=== PATIENT | male | born 1975 | race Caucasian/White ===

== ENCOUNTER → 2018-11-08 09:16 | Outpatient (POV) | payer OTHER, SELFPAY ==
[2018-11-08 09:31] VITALS: BP 149/98; PULSE 72; RESP 18; O2SAT 99
--- NOTE | 2018-11-08 12:37 | HMH.PMCON ---
Assessment and Plan (1) Postlaminectomy syndrome Current visit: Yes Status: Chronic Category: Medical Code(s): M96.1 - Postlaminectomy syndrome, not elsewhere classified (2) Failed back syndrome Current visit: Yes Status: Chronic Category: Medical Code(s): M96.1 - Postlaminectomy syndrome, not elsewhere classified - Assessment and plan all Dx Assessment and Plan for all problems:: Patient and I had a long discussion in regards to oral medications we discussed the probability of him having systemic side effects given his age and potential long-term need for them. Patient and I discussed also an intrathecal pain pump. He is interested in pursuing this. I do believe an intrathecal trial of medication would be beneficial for him. I will follow up with the patient after this. Dr. Barrow has reviewed this note and agrees with this plan of care. This note was dictated using voice recognition software and may contain errors or omissions HPI - Data of Consult Patient: new to practice Consult date: 11/08/18 Requesting Physician: Deepali Kebede APRN Primary Care Provider: Agnes Sifuentes APRN - Consult Narrative Reason for consult: Back pain History of present illness: Mr. Perez is a 42 year old male who presents today to discuss long-term management of his ongoing back pain. Patient has had [address] Villar. She states that the stabbing pain is gone however he still having a lot of low back pain. He denies any numbness and tingling in his extremities. Patient states any increased activity makes his pain worse while rest and Tylenol make it slightly better. He rates his pain a 6 out of 10 this is his baseline. Patient has tried injection therapy with minimal relief he is also tried physical therapy with minimal relief. He is tried and failed Soma, Flexeril, Lortab, Dilaudid, Motrin, Roxanol, naproxen, Endocet, Ultram. Patient has tried bracing with some minimal relief. Patient and I had a long discussion in regards to oral versus intrathecal medication. CC: Deepali Kebede APRN [facility] History I have reviewed the patient's past medical history: Yes Medical History: Reports:: Hypertension - *Social History Smoking Status: Current every day smoker Tobacco Type: smokeless tobacco # Packs/Day (cigarettes): 2 Alcohol Intake: never *Occupational Status:: other Housing: house *Travel in the last 8 weeks: None - Psychiatric History Expresses thoughts of harming self/others: None Suicide Plan Description: No Plan Family Hx:: Unable to obtain Review of Systems - Review of Systems ROS General: no recent weight change, no fever, no sleep disturbances Respiratory: no cough, no shortness of air, no recurring pulmonary infections Cardiovascular/Peripheral Vascular: No chest pain, No palpitations, no edema, no shortness of breath. Gastrointestinal: no incontinence, normal bowel movements reported Genitourinary: no incontinence Musculoskeletal: Back pain, hip pain Psychiatric: normal mood/ affect Neurological: [denies weakness in extremities], [denies balance issues] Meds Home Medications Medication Instructions Recorded Confirmed Type Ibuprofen [Ibuprofen 800mg 800 mg PO Q4-6H 11/08/18 11/08/18 History Tablet] Lisinopril [Lisinopril 10mg Tab] 10 mg PO DAILY 11/08/18 11/08/18 History Pantoprazole Sodium [Protonix 40mg 40 mg PO DAILY 11/08/18 11/08/18 History tablet] Objective Vital signs: Pulse Resp BP Pulse Ox 72 18 149/98 H 99 11/08/18 09:31 11/08/18 09:31 11/08/18 09:31 11/08/18 09:31 Narrative: Physical Exam General: Alert and oriented x3, no acute distress, pleasant and cooperative, [on room air] Lungs: Resps E/U, Symmetrical chest expansion, Eyes: PERRL Musculoskeletal: Flexion and extension of lumbar spine somewhat guarded secondary to pain, deep tendon reflexes normal, strength in upper and lower extremiti
--- NOTE | 2018-11-08 12:40 | P.CONS_ITS ---
Assessment and Plan (1) Postlaminectomy syndrome Current visit: Yes Status: Chronic Category: Medical Code(s): M96.1 - Postlaminectomy syndrome, not elsewhere classified (2) Failed back syndrome Current visit: Yes Status: Chronic Category: Medical Code(s): M96.1 - Postlaminectomy syndrome, not elsewhere classified - Assessment and plan all Dx Assessment and Plan for all problems:: Patient and I had a long discussion in regards to oral medications we discussed the probability of him having systemic side effects given his age and potential long-term need for them. Patient and I discussed also an intrathecal pain pump. He is interested in pursuing this. I do believe an intrathecal trial of medication would be beneficial for him. I will follow up with the patient after this. Dr. Barrow has reviewed this note and agrees with this plan of care. This note was dictated using voice recognition software and may contain errors or omissions HPI - Data of Consult Patient: new to practice Consult date: 11/08/18 Requesting Physician: Deepali Kebede APRN Primary Care Provider: Agnes Sifuentes APRN - Consult Narrative Reason for consult: Back pain History of present illness: Mr. Perez is a 42 year old male who presents today to discuss long-term management of his ongoing back pain. Patient has had [address] Villar. She states that the stabbing pain is gone however he still having a lot of low back pain. He denies any numbness and tingling in his extremities. Patient states any increased activity makes his pain worse while rest and Tylenol make it slightly better. He rates his pain a 6 out of 10 this is his baseline. Patient has tried injection therapy with minimal relief he is also tried physical therapy with minimal relief. He is tried and failed Soma, Flexeril, Lortab, Dilaudid, Motrin, Roxanol, naproxen, Endocet, Ultram. Patient has tried bracing with some minimal relief. Patient and I had a long discussion in regards to oral versus intrathecal medication. CC: Deepali Kebede APRN [facility] History I have reviewed the patient's past medical history: Yes Medical History: Reports:: Hypertension - *Social History Smoking Status: Current every day smoker Tobacco Type: smokeless tobacco # Packs/Day (cigarettes): 2 Alcohol Intake: never *Occupational Status:: other Housing: house *Travel in the last 8 weeks: None - Psychiatric History Expresses thoughts of harming self/others: None Suicide Plan Description: No Plan Family Hx:: Unable to obtain Review of Systems - Review of Systems ROS General: no recent weight change, no fever, no sleep disturbances Respiratory: no cough, no shortness of air, no recurring pulmonary infections Cardiovascular/Peripheral Vascular: No chest pain, No palpitations, no edema, no shortness of breath. Gastrointestinal: no incontinence, normal bowel movements reported Genitourinary: no incontinence Musculoskeletal: Back pain, hip pain Psychiatric: normal mood/ affect Neurological: [denies weakness in extremities], [denies balance issues] Meds Home Medications Medication Instructions Recorded Confirmed Type Ibuprofen [Ibuprofen 800mg 800 mg PO Q4-6H 11/08/18 11/08/18 History Tablet] Lisinopril [Lisinopril 10mg Tab] 10 mg PO DAILY 11/08/18 11/08/18 History Pantoprazole Sodium [Protonix 40mg 40 mg PO DAILY 11/08/18 11/08/18 History tablet] Obj
== END ==
PROVIDERS: PCP Nurse Practitioner; Visit Provider Clinical Nurse Specialist Family Health
DX: M96.1 Postlaminectomy syndrome, not elsewhere classified (principal)
CPT/HCPCS: 99202

== ENCOUNTER 2019-02-11 08:41 | Day surgery (SDC) | payer OTHER, SELFPAY ==
[2019-02-11] VITALS (9 sets, daily range): BP systolic 118–149; BP diastolic 77–89; PULSE 50–71; RESP 18–20; TEMP 37.2; O2SAT 94–99; BMI 27.1
--- NOTE | 2019-02-11 09:35 | P.PCN_ITS ---
- Procedure Date: 02/11/19 Time: 09:32 Anesthesiologist:: Grupo Barrow MD Complications:: None Pre-procedure Diagnosis:: Degenerative disc disease of lumbar spine with lumbar radiculopathy symptoms and postlaminectomy syndrome of lumbar spine Post-procedure Diagnosis:: Same Indications for Procedure:: This patient is a pleasant 42-year-old white male who we are treating for postlaminectomy syndrome of lumbar spine with lumbar radiculopathy symptoms. He has had 2 previous back surgeries by Dr. Asher. He is failed all conservative therapy including injections, physical therapy, previous surgery and oral narcotics. He normally does not take any oral narcotics. We will do a intrathecal pump trial today to see if this will help alleviate his symptoms. Procedure Details:: Pain pump trial Informed consent was obtained and the risk and benefits of the procedure was explained to the patient. The patient was taken to the procedure room and placed prone on the procedure table. Patient was prepped and draped in sterile fashion. C-arm fluoroscopy was used to view the lumbar spine. The skin and subcutaneous tissues were anesthetized using lidocaine. I placed a 18-gauge spinal needle into the L4-5 interspace and advanced until clear CSF was obtained. After this intrathecal catheter was inserted and advanced very easily to the L1 vertebral body. We were able to freely withdraw clear CSF through the catheter. We bolused 25 mcg of intrathecal fentanyl single shot through this catheter. This was followed by saline and CSF. The needle and catheter were then withdrawn and a Band-Aid was placed. Patient tolerated the procedure well with no complications. We reevaluated the patient after 30 minutes to 1 hour. He was also reassessed by physical therapy. He had 90% relief in his pain symptoms. Pain score was a 1 out of 10. He is also much more functional able to walk further and stand longer. This was a successful intrathecal pump trial. He wants to proceed with permanent placement. We will plan on permanent placement with intrathecal ziconotide which is a nonnarcotic medication. 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 We will plan on permanent placement with intrathecal ziconotide 25 mcg/mL to be on periodic flow at 0.5 mcg boluses twice a day. Plan and Disposition:: Plan and disposition: We will have him follow-up with Dr. Rizo for permanent placement of his battery. We will seek approval for intrathecal ziconotide 25 mcg per mall to be on periodic flow at 0.5 mg boluses. This was a successful pump trial. Patient is failed all conservative therapy including surgery and is not on any oral narcotics.
== END 2019-02-11 10:53 | disposition home or self-care (01) ==
LOC: SC.PAINP 08:43
PROVIDERS: PCP Physician Assistant Medical; Visit Provider Anesthesiology
DX: M51.16 Intervertebral disc disorders with radiculopathy, lumbar region (principal); M96.1 Postlaminectomy syndrome, not elsewhere classified
CPT/HCPCS: 62323

== ENCOUNTER → 2019-03-11 14:34 | Outpatient (POV) | payer OTHER, SELFPAY ==
[2019-03-11 15:13] VITALS: BP 141/84; PULSE 89; RESP 18; O2SAT 99; BMI 27.8
--- NOTE | 2019-03-11 15:15 | HMH.PAINSOAP ---
[facility] Pain Management SOAP Note Subjective:: This patient is a pleasant 42-year-old white male who we are treating for postlaminectomy syndrome of lumbar spine with lumbar radiculopathy symptoms. He had a successful neuropsychological evaluation and a successful intrathecal pump trial. 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 We are seeking approval from his [employer]. for intrathecal ziconotide. I believe he would be a good candidate for intrathecal ziconotide. We will plan on intrathecal pain pump placement with ziconotide when approved. Objective:: Alert and oriented x3 no acute distress. Patient does have a normal gait. Motor strength of the lower extremities is 5/5. There is no gross sensory deficit. Assessment:: Postlaminectomy syndrome of lumbar spine with lumbar radiculopathy symptoms and degenerative disc disease of lumbar spine Plan:: This patient is failed all conservative therapy including physical therapy, injections, oral medications and previous surgery. He had a successful neuropsychological evaluation and a successful intrathecal pump trial with 80 to 90% relief of his pain symptoms. He was also much more functional. 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 We are awaiting approval for his intrathecal ziconotide. We will start him at 0.5 mcg twice a day boluses. Patient did asked to be put off work and also asked for pain medication. I told him we cannot put him off work and we can not give him any opioid pain medication. I have suggested ibuprofen and Tylenol.
--- NOTE | 2019-03-11 15:18 | P.CONS_ITS ---
[facility] Pain Management SOAP Note Subjective:: This patient is a pleasant 42-year-old white male who we are treating for postlaminectomy syndrome of lumbar spine with lumbar radiculopathy symptoms. He had a successful neuropsychological evaluation and a successful intrathecal pump trial. 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 We are seeking approval from his [employer]. for intrathecal ziconotide. I believe he would be a good candidate for intrathecal ziconotide. We will plan on intrathecal pain pump placement with ziconotide when approved. Objective:: Alert and oriented x3 no acute distress. Patient does have a normal gait. Motor strength of the lower extremities is 5/5. There is no gross sensory deficit. Assessment:: Postlaminectomy syndrome of lumbar spine with lumbar radiculopathy symptoms and degenerative disc disease of lumbar spine Plan:: This patient is failed all conservative therapy including physical therapy, injections, oral medications and previous surgery. He had a successful neuropsychological evaluation and a successful intrathecal pump trial with 80 to 90% relief of his pain symptoms. He was also much more functional. 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 We are awaiting approval for his intrathecal ziconotide. We will start him at 0.5 mcg twice a day boluses. Patient did asked to be put off work and also asked for pain medication. I told him we cannot put him off work and we can not give him any opioid pain medication. I have suggested ibuprofen and Tylenol.
== END ==
PROVIDERS: PCP Physician Assistant Medical; Visit Provider Anesthesiology
DX: M96.1 Postlaminectomy syndrome, not elsewhere classified (principal); M51.16 Intervertebral disc disorders with radiculopathy, lumbar region
CPT/HCPCS: 99212

== ENCOUNTER → 2019-04-04 10:25 | Outpatient (CLI) | payer OTHER, SELFPAY ==
[2019-04-04 11:14] LABS: Basophils # 0.1 K/mm3 (0-0.2); Basophils % 0.9 % (0.1-2.0); Eosinophils # 0.1 K/mm3 (0.0-0.4); Hematocrit 51.6 % (42.0-52.0); Hemoglobin 15.5 g/dL (14.1-18.0); Lymphocytes # 1.9 K/mm3 (0.7-4.5); Lymphocytes % 34.1 % (10-50); Mean Corpuscular HGB Conc 30.1 g/dL (31.8-35.4); Mean Corpuscular Hemoglobin 28.1 pg (27.0-31.2); Mean Corpuscular Volume 93.6 fl (80-94); Mean Platelet Volume 9.2 fl (7.4-10.4); Monocytes # 0.3 K/mm3 (0.1-1.0); Monocytes % 5.8 % (1.7-9.3); Neutrophils # 3.2 K/mm3 (1.8-7.8); Neutrophils % 57.1 % (37.0-80.0); Platelet Count 173 K/mm3 (142-424); Red Blood Count 5.51 M/mm3 (4.60-6.20); Red Cell Distribution Width 12.6 % (11.5-17.5); White Blood Count 5.7 K/mm3 (4.8-10.8)
[2019-04-04 12:34] LABS: Anion Gap 9.1 mEq/L (5-15); Blood Urea Nitrogen 13 mg/dL (7-18); Calcium 10.9 mg/dL (8.5-10.1); Carbon Dioxide 30 mmol/L (21.0-32.0); Chloride 106 mmol/L (98-107); Creatinine,Serum 1.11 mg/dL (0.70-1.30); Estimated Glomerular Filt Rate 73 ml/min (>60); GFR (African American) 88 ML/MIN (>60); Glucose 96 mg/dL (74-106); Potassium 5.1 mmoL/L (3.5-5.1); Sodium 140 mmol/L (136-145)
[2019-04-04 14:49] LABS: Amphetamine/Metha Screen,Urine Negative ng/mL (<1000); Barbiturates Screen,Urine Negative ng/mL (<200); Benzodiazepines Screen,Urine Negative ng/mL (<200); Cannabinoid Screen,Urine Negative ng/mL (<50); Cocaine Screen,Urine Negative ng/mL (<300); Methadone Screen,Urine Negative ng/mL (<300); Opiate Screen,Urine Negative ng/mL (<300); Phencyclidine Screen,Urine Negative ng/mL (<25)
== END ==
PROVIDERS: Visit Provider Clinical Nurse Specialist Family Health
DX: Z79.899 Other long term (current) drug therapy (principal)
CPT/HCPCS: 36415; 80048; 80305; 85025

== ENCOUNTER → 2019-04-12 09:34 | Outpatient (POV) | payer OTHER, SELFPAY ==
[2019-04-12 09:50] VITALS: BP 147/96; PULSE 70; RESP 18; O2SAT 98; BMI 28.5
--- NOTE | 2019-04-12 09:51 | HMH.PAINSOAP ---
[facility] Pain Management SOAP Note Subjective:: Patient is a pleasant 42-year-old white male who presents today for follow-up after intrathecal pain pump placement. Patient is doing well today. He is being treated for postlaminectomy syndrome of lumbar spine with lumbar radiculopathy symptoms. He has had 2 previous back surgeries by Dr. Jian staples with continued back pain. He is failed all conservative therapies including injections physical therapy, previous surgeries and oral narcotics. He is no longer taking oral narcotics. Given his job he was unable to take any narcotics. As a result, we did start the patient with Prialt medication and his intrathecal pain pump. The patient says his pain is a 3 out of 10 today. He denies any side effects to his medication. [facility] #[id number] has been reviewed and is appropriate. Review of Systems General: No recent weight changes, no fever, no sleep disturbances Respiratory: No cough, no shortness of air, no recurring pulmonary infections Cardiovascular/peripheral vascular: No chest pain, no palpitations, no edema, no shortness of breath Gastrointestinal: No new onset incontinence, normal bowel movements reported Genitourinary: No new onset incontinence Musculoskeletal: Back pain Psychiatric: Normal mood/affect Neurological: [Denies weakness in extremities], [denies balance issues] Objective:: Physical exam General: Alert and oriented x3, no acute distress, pleasant and cooperative, [on room air] Lungs: Respirations even and unlabored, symmetrical chest expansion Eyes: PERRL Musculoskeletal: Flexion and extension of lumbar spine somewhat guarded secondary to pain, deep tendon reflexes normal, strength in upper and lower extremities [5/5], [abnormal gait noted] Neurological: Speech clear, valve steamer equal, no gross sensory deficit Assessment:: Degenerative disc disease lumbar spine with lumbar radiculopathy symptoms and postlaminectomy syndrome lumbar spine Plan:: Overall, the patient is doing well today. He denies any side effects to his medication. His wound VAC was removed today. Incision is well approximated with no infection noted. Sutures are intact. We will see the patient back in 2 weeks to remove his sutures. Patient is doing well with his dosage of Prialt. We will reassess at his next visit, and contact the office if he has any concerns prior to his next appointment. Dr. Barrow has reviewed this note and agrees with this plan of care. This note was dictated using voice recognition software and make contain errors or omissions.
--- NOTE | 2019-04-12 10:01 | P.CONS_ITS ---
[facility] Pain Management SOAP Note Subjective:: Patient is a pleasant 42-year-old white male who presents today for follow-up after intrathecal pain pump placement. Patient is doing well today. He is being treated for postlaminectomy syndrome of lumbar spine with lumbar radiculopathy symptoms. He has had 2 previous back surgeries by Dr. Jian staples with continued back pain. He is failed all conservative therapies including injections physical therapy, previous surgeries and oral narcotics. He is no longer taking oral narcotics. Given his job he was unable to take any narcotics. As a result, we did start the patient with Prialt medication and his intrathecal pain pump. The patient says his pain is a 3 out of 10 today. He denies any side effects to his medication. [facility] #[id number] has been reviewed and is appropriate. Review of Systems General: No recent weight changes, no fever, no sleep disturbances Respiratory: No cough, no shortness of air, no recurring pulmonary infections Cardiovascular/peripheral vascular: No chest pain, no palpitations, no edema, no shortness of breath Gastrointestinal: No new onset incontinence, normal bowel movements reported Genitourinary: No new onset incontinence Musculoskeletal: Back pain Psychiatric: Normal mood/affect Neurological: [Denies weakness in extremities], [denies balance issues] Objective:: Physical exam General: Alert and oriented x3, no acute distress, pleasant and cooperative, [on room air] Lungs: Respirations even and unlabored, symmetrical chest expansion Eyes: PERRL Musculoskeletal: Flexion and extension of lumbar spine somewhat guarded secondary to pain, deep tendon reflexes normal, strength in upper and lower extremities [5/5], [abnormal gait noted] Neurological: Speech clear, wood furniture assembler equal, no gross sensory deficit Assessment:: Degenerative disc disease lumbar spine with lumbar radiculopathy symptoms and postlaminectomy syndrome lumbar spine Plan:: Overall, the patient is doing well today. He denies any side effects to his medication. His wound VAC was removed today. Incision is well approximated with no infection noted. Sutures are intact. We will see the patient back in 2 weeks to remove his sutures. Patient is doing well with his dosage of Prialt. We will reassess at his next visit, and contact the office if he has any concerns prior to his next appointment. Dr. Barrow has reviewed this note and agrees with this plan of care. This note was dictated using voice recognition software and make contain errors or omissions.
== END ==
PROVIDERS: Visit Provider Clinical Nurse Specialist Family Health
DX: M51.16 Intervertebral disc disorders with radiculopathy, lumbar region (principal); M96.1 Postlaminectomy syndrome, not elsewhere classified
CPT/HCPCS: 99212

== ENCOUNTER → 2019-04-25 13:19 | Outpatient (POV) | payer OTHER, SELFPAY ==
[2019-04-25 14:09] VITALS: BP 128/82; PULSE 78; RESP 18; O2SAT 98; BMI 28.5
--- NOTE | 2019-05-02 16:00 | P.PCN_ITS ---
- Procedure Date: 04/25/19 Time: 13:45 Anesthesiologist:: Deepali Kebede APRN Complications:: None Pre-procedure Diagnosis:: Degenerative disc disease lumbar spine with lumbar radiculopathy Post-procedure Diagnosis:: Same Indications for Procedure:: Patient is a pleasant 43-year-old white male who presents today for intrathecal pain pump adjustment. Patient is doing extremely well the stitches have been removed over the intrathecal pain pump everything is healed no sign symptoms of infection. He is currently on a Prialt infusion of 0.5 mcg every 12 hours. He rates his pain a 3 out of 10 he denies side effects he would like a slight increase today. Physical Exam General: Alert and oriented x3, no acute distress, pleasant and cooperative, [on room air] Lungs: Resps E/U, Symmetrical chest expansion, Eyes: PERRL Musculoskeletal: Flexion and extension of lumbar spine somewhat guarded secondary to pain, deep tendon reflexes normal, strength in upper and lower extremities [5/5], slightly antalgic gait noted Neurological: speech clear, medical records receptionist equal, no gross sensory deficits Procedure Details:: Informed consent was obtained and the risk and benefits of the procedure were explained to the patient. The patient was taken to the procedure room where noninvasive monitoring was placed including noninvasive blood pressure cuff and pulse oximeter. Patient's pump was interrogated and reprogrammed. The infusion rate was patient was changed to 0.5 mcg every 8 hours for total daily dose of 1.5 mcg Prialt. The patient tolerated the procedure well. Plan and Disposition:: I will see the patient back in a month reassess his symptoms at that time he is been instructed to call the office if he has any issues prior to his next appointment. Dr. Barrow has reviewed this note and agrees with this plan of care. This note was dictated using voice recognition software and may contain errors or omissions
== END ==
PROVIDERS: Visit Provider Clinical Nurse Specialist Family Health
DX: M51.16 Intervertebral disc disorders with radiculopathy, lumbar region (principal)
CPT/HCPCS: 62368

== ENCOUNTER → 2019-05-09 14:02 | Outpatient (POV) | payer OTHER, SELFPAY ==
[2019-05-09 14:39] VITALS: BP 145/78; PULSE 72; RESP 18; O2SAT 98; BMI 28.5
--- NOTE | 2019-05-09 15:59 | HMH.PMPROC ---
- Procedure Date: 05/09/19 Time: 15:59 Anesthesiologist:: Deepali Kebede APRN Complications:: None Pre-procedure Diagnosis:: Degenerative disc disease lumbar spine with lumbar radiculopathy Post-procedure Diagnosis:: Same Indications for Procedure:: Patient is a pleasant 43-year-old white male who presents today for intrathecal pain pump adjustment. He rates his pain a 5 out of 10. He is doing well however his pain has increased with his increased activity. He did have some concerns in regards to the medication w working however he states he realizes now that it is beneficial for him. We will increase his dose today. He is currently on Prialt he is on 0.5 mcg every 8 hours. We will increase it today by 1 bolus. Physical Exam General: Alert and oriented x3, no acute distress, pleasant and cooperative, [on room air] Lungs: Resps E/U, Symmetrical chest expansion, Eyes: PERRL Musculoskeletal: Flexion and extension of lumbar spine somewhat guarded secondary to pain, deep tendon reflexes normal, strength in upper and lower extremities [5/5], slightly antalgic gait noted Neurological: speech clear, digital librarian equal, no gross sensory deficits Procedure Details:: Informed consent was obtained and the risk and benefits of the procedure were explained to the patient. The patient was taken to the procedure room where noninvasive monitoring was placed including noninvasive blood pressure cuff and pulse oximeter. Patient's pump was interrogated and reprogrammed. The infusion rate was 0.5 mcg every 6 hours for total daily dose of 2 mcg of Prialt. The patient tolerated the procedure well. Plan and Disposition:: I will see the patient back in 2 weeks reassess his symptoms at that time he is been instructed to call the office if he has any issues prior to his next appointment. Dr. Barrow has reviewed this note and agrees with this plan of care. This note was dictated using voice recognition software and may contain errors or omissions
== END ==
PROVIDERS: PCP Clinical Nurse Specialist Family Health; Visit Provider Clinical Nurse Specialist Family Health
DX: M51.16 Intervertebral disc disorders with radiculopathy, lumbar region (principal)
CPT/HCPCS: 62368

== ENCOUNTER → 2019-05-24 10:41 | Outpatient (POV) | payer OTHER, SELFPAY ==
[2019-05-24 11:59] VITALS: BP 151/95; PULSE 61; RESP 18; O2SAT 98; BMI 28.5
--- NOTE | 2019-05-24 12:47 | HMH.PMPROC ---
- Procedure Date: 05/24/19 Time: 12:47 Anesthesiologist:: Deepali Kebede APRN Complications:: None Pre-procedure Diagnosis:: Degenerative disc disease lumbar spine with lumbar radiculopathy Post-procedure Diagnosis:: Same Indications for Procedure:: This is a pleasant 43-year-old white male who presents today for intrathecal pain pump adjustment. He rates his pain a 3 out of 10. Patient I discussed when he can go back to work. I would like to wait until his first refill. We will increase his medication today he is going to start working out and seeing how his toleration of it goes. 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 He denies any side effects from his prialt. He is currently on Prialt 0.5 mcg every 6 hours. [facility] #[id number] reviewed and appropriate Physical Exam General: Alert and oriented x3, no acute distress, pleasant and cooperative, [on room air] Lungs: Resps E/U, Symmetrical chest expansion, Eyes: PERRL Musculoskeletal: Flexion and extension of lumbar spine somewhat guarded secondary to pain, deep tendon reflexes normal, strength in upper and lower extremities [5/5], normal gait noted Neurological: speech clear, microsoft windows engineer equal, no gross sensory deficits Procedure Details:: Informed consent was obtained and the risk and benefits of the procedure were explained to the patient. The patient was taken to the procedure room where noninvasive monitoring was placed including noninvasive blood pressure cuff and pulse oximeter. Patient's pump was interrogated and reprogrammed. The infusion rate was changed to periodic flow of 0.5 mcg every 4 hours for total daily dose of 3 mcg. The patient tolerated the procedure well. Plan and Disposition:: If possible I would like to keep him off work until his first refill I told him to start participating in more activity to see if he tolerates it well I will see him back at his next intrathecal pain pump refill and reprogram he is been instructed to call the office if he has any issues prior to his next appointment. Dr. Barrow has reviewed this note and agrees with this plan of care. This note was dictated using voice recognition software and may contain errors or omissions
--- NOTE | 2019-05-24 12:50 | P.PCN_ITS ---
- Procedure Date: 05/24/19 Time: 12:47 Anesthesiologist:: Deepali Kebede APRN Complications:: None Pre-procedure Diagnosis:: Degenerative disc disease lumbar spine with lumbar radiculopathy Post-procedure Diagnosis:: Same Indications for Procedure:: This is a pleasant 43-year-old white male who presents today for intrathecal pain pump adjustment. He rates his pain a 3 out of 10. Patient I discussed when he can go back to work. I would like to wait until his first refill. We will increase his medication today he is going to start working out and seeing how his toleration of it goes. 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 He denies any side effects from his prialt. He is currently on Prialt 0.5 mcg every 6 hours. [facility] #[id number] reviewed and appropriate Physical Exam General: Alert and oriented x3, no acute distress, pleasant and cooperative, [on room air] Lungs: Resps E/U, Symmetrical chest expansion, Eyes: PERRL Musculoskeletal: Flexion and extension of lumbar spine somewhat guarded secondary to pain, deep tendon reflexes normal, strength in upper and lower extremities [5/5], normal gait noted Neurological: speech clear, ultimate hoops trainer equal, no gross sensory deficits Procedure Details:: Informed consent was obtained and the risk and benefits of the procedure were explained to the patient. The patient was taken to the procedure room where noninvasive monitoring was placed including noninvasive blood pressure cuff and pulse oximeter. Patient's pump was interrogated and reprogrammed. The infusion rate was changed to periodic flow of 0.5 mcg every 4 hours for total daily dose of 3 mcg. The patient tolerated the procedure well. Plan and Disposition:: If possible I would like to keep him off work until his first refill I told him to start participating in more activity to see if he tolerates it well I will see him back at his next intrathecal pain pump refill and reprogram he is been instructed to call the office if he has any issues prior to his next appointment. Dr. Barrow has reviewed this note and agrees with this plan of care. This note was dictated using voice recognition software and may contain errors or omissions
== END ==
PROVIDERS: PCP Physician Assistant Medical; Visit Provider Clinical Nurse Specialist Family Health
DX: M51.16 Intervertebral disc disorders with radiculopathy, lumbar region (principal)
CPT/HCPCS: 62368

== ENCOUNTER → 2019-08-01 14:20 | Outpatient (POV) | payer OTHER, SELFPAY ==
[2019-08-01 14:56] VITALS: BP 154/95; PULSE 88; RESP 18; O2SAT 98; BMI 29.1
--- NOTE | 2019-08-02 08:34 | P.PCN_ITS ---
- Procedure Date: 08/01/19 Time: 14:40 Anesthesiologist:: Deepali Kebede APRN Complications:: None Pre-procedure Diagnosis:: Degenerative disc disease lumbar spine with lumbar radiculopathy Post-procedure Diagnosis:: Same Indications for Procedure:: Patient is a pleasant 43-year-old white male who presents today for intrathecal pain pump adjustment. Patient is on Prialt he has been having some side effects including brain fog, blurry vision, difficulty with vocabulary at times. Patient also having memory issues. We will decrease his intrathecal infusion of Prialt to see if this is beneficial. Patient is currently on 4 mcg a day we will decrease him to 3.6 and change it to 0.3 mcg over 10 minutes every 2 hours. Patient is having some pain rating it a 7 out of 10 today. However it does flare and decrease.Physical Exam General: Alert and oriented x3, no acute distress, pleasant and cooperative, [on room air] Lungs: Resps E/U, Symmetrical chest expansion, Eyes: PERRL Musculoskeletal: Flexion and extension of lumbar spine somewhat guarded secondary to pain, deep tendon reflexes normal, strength in upper and lower extremities [5/5], [abnormal gait noted] Neurological: speech clear, evp global product leadership equal, no gross sensory deficits Procedure Details:: Informed consent was obtained and the risk and benefits of the procedure were explained to the patient. The patient was taken to the procedure room where noninvasive monitoring was placed including noninvasive blood pressure cuff and pulse oximeter. Patient's pump was interrogated and reprogrammed. The infusion rate was turned to 0.3 mcg over 10 minutes every 2 hours. The patient tolerated the procedure well. Plan and Disposition:: Will follow-up with the patient 1 week reassess his symptoms at that time he has been instructed to call the office if he has any issues prior to his next appointment. Dr. Barrow has reviewed this note and agrees with this plan of care. This note was dictated using voice recognition software and may contain errors or omissions
== END ==
PROVIDERS: PCP Physician Assistant Medical; Visit Provider Clinical Nurse Specialist Family Health
DX: M51.16 Intervertebral disc disorders with radiculopathy, lumbar region (principal)
CPT/HCPCS: 62368

== ENCOUNTER → 2019-08-09 10:11 | Outpatient (POV) | payer OTHER, SELFPAY ==
[2019-08-09 10:45] VITALS: BP 131/85; PULSE 66; RESP 16; O2SAT 97; BMI 29.1
--- NOTE | 2019-08-09 11:52 | P.PCN_ITS ---
- Procedure Date: 08/09/19 Time: 11:00 Anesthesiologist:: Deepali Kebede APRN Complications:: None Pre-procedure Diagnosis:: Degenerative disc disease lumbar spine with lumbar radiculopathy Post-procedure Diagnosis:: Same Indications for Procedure:: Patient is a very pleasant 43-year-old white male who presents today for intrathecal pain pump adjustment. He is on Prialt and has been having some side effects including memory issues foggy headedness and difficulty with vocabulary at times. At his last visit he was decreased and he did significantly better. Patient is presenting today with his who also states he did much better. He rates his pain a 4 out of 10 today however he still concerned because he is exhibiting the same side effects. Patient and I had a long discussion in regards to how we should move forward. We will decrease his overall rate today switch him to constant flow and start a PTC. Physical Exam General: Alert and oriented x3, no acute distress, pleasant and cooperative, [on room air] Lungs: Resps E/U, Symmetrical chest expansion, Eyes: PERRL Musculoskeletal: Flexion and extension of lumbar spine somewhat guarded secondary to pain, deep tendon reflexes normal, strength in upper and lower extremities [5/5], antalgic gait noted Neurological: speech clear, wage and salary specialist equal, no gross sensory deficits Procedure Details:: Informed consent was obtained and the risk and benefits of the procedure were explained to the patient. The patient was taken to the procedure room where noninvasive monitoring was placed including noninvasive blood pressure cuff and pulse oximeter. Patient's pump was interrogated and reprogrammed. The infusion rate was decreased to 1.8 mcg/day and a PTC was set up at 0.18 mcg over 10 minutes every 4 hours as needed. The patient tolerated the procedure well. Plan and Disposition:: I will follow-up with the patient in 1 week reassess his symptoms at that time he is been instructed to call the office if he has any issues prior to his next appointment.. Dr. Barrow has reviewed this note and agrees with this plan of care. This note was dictated using voice recognition software and may contain errors or omissions
== END ==
PROVIDERS: PCP Physician Assistant Medical; Visit Provider Clinical Nurse Specialist Family Health
DX: M51.16 Intervertebral disc disorders with radiculopathy, lumbar region (principal)
CPT/HCPCS: 62368

== ENCOUNTER → 2019-08-16 10:53 | Outpatient (POV) | payer OTHER, SELFPAY ==
[2019-08-16 11:34] VITALS: BP 129/85; PULSE 65; RESP 18; O2SAT 99; BMI 33.9
--- NOTE | 2019-08-16 16:01 | P.PCN_ITS ---
- Procedure Date: 08/16/19 Time: 15:57 Anesthesiologist:: Deepali Kebede APRN Complications:: None Pre-procedure Diagnosis:: Degenerative disc disease lumbar spine with lumbar radiculopathy Post-procedure Diagnosis:: Same Indications for Procedure:: Patient is a pleasant 43-year-old white male who presents today for follow-up after decrease in his intrathecal Prialt medication. He rates his pain a 3 out of 10 today. Patient states that his fogginess has improved however on further discussion in regards to his history patient states that he has a history of brain fog and difficulty finding words. Patient also states that he is having trouble with his sexual relations stating that it painful. I discussed with him that I feel like he should go and be seen by a primary care provider for blood testing. I discussed with him in regards to his sexual issues that we would continue to monitor this however I do not believe it is a issue in regards to the Prialt. Physical Exam General: Alert and oriented x3, no acute distress, pleasant and cooperative, [on room air] Lungs: Resps E/U, Symmetrical chest expansion, Eyes: PERRL Musculoskeletal: Flexion and extension of lumbar spine somewhat guarded secondary to pain, deep tendon reflexes normal, strength in upper and lower extremities [5/5], [abnormal gait noted] Neurological: speech clear, brazer assembler equal, no gross sensory deficits Procedure Details:: Informed consent was obtained and the risk and benefits of the procedure were explained to the patient. The patient was taken to the procedure room where noninvasive monitoring was placed including noninvasive blood pressure cuff and pulse oximeter. Patient's pump was interrogated and reprogrammed. The infusion rate was changed back to periodic flow of 0.18 mcg every hour and a half for total daily dose of 2.88 mcg/day. The patient tolerated the procedure well. Plan and Disposition:: I did not change the dosing of his medication I only change the way that was being delivered. Patient is going to be seen by his primary care physician for discussion in regards to potential electrolyte imbalances and having some blood work run. I will follow-up with him after a week reassess him at that time. Dr. Barrow has reviewed this note and agrees with this plan of care. This note was dictated using voice recognition software and may contain errors or omissions
== END ==
PROVIDERS: PCP Physician Assistant Medical; Visit Provider Clinical Nurse Specialist Family Health
DX: M51.16 Intervertebral disc disorders with radiculopathy, lumbar region (principal)
CPT/HCPCS: 62368

== ENCOUNTER → 2019-08-30 10:37 | Outpatient (POV) | payer OTHER, SELFPAY ==
[2019-08-30 11:09] VITALS: BP 165/89; PULSE 74; RESP 18; O2SAT 99; BMI 31.1
--- NOTE | 2019-08-30 11:42 | P.PCN_ITS ---
- Procedure Date: 08/30/19 Time: 11:40 Anesthesiologist:: Deepali Kebede APRN Complications:: None Pre-procedure Diagnosis:: Degenerative disc disease lumbar spine with lumbar radiculopathy Post-procedure Diagnosis:: Same Indications for Procedure:: Patient is a pleasant 43-year-old white male who presents today for intrathecal pain pump reprogram. Patient has Prialt. She he rates his pain a 4 out of 10. His pain is increased we have been decreasing them due to side effects his side effects has since subsided. Patient will begin to slowly reintroduce Prialt and will report any side effects. Patient also is being treated for high levels of calcium. Patient is also having some sexual issues he does have a past history of family prostate cancer and also history of prostate infections. I encouraged the patient to go see his urologist. ROS General: no recent weight change, no fever, no sleep disturbances Respiratory: no cough, no shortness of air, no recurring pulmonary infections Cardiovascular/Peripheral Vascular: No chest pain, No palpitations, no edema, no shortness of breath. Gastrointestinal: no new onset incontinence, normal bowel movements reported Genitourinary: no new onset incontinence Musculoskeletal: Back pain Psychiatric: normal mood/ affect Neurological: [denies new onset weakness in extremities], [denies new onset balance issues] Procedure Details:: Informed consent was obtained and the risk and benefits of the procedure were explained to the patient. The patient was taken to the procedure room where no ninvasive monitoring was placed including noninvasive blood pressure cuff and pulse oximeter. Patient's pump was interrogated and reprogrammed. The infusion rate was increased to 3 mcg a day and his PTC was set up at 0.15 mcg per activation with up to 6 activations a day every 4 hours as needed. The patient tolerated the procedure well. Plan and Disposition:: I will follow-up with the patient at his next intrathecal pain pump refill and reprogram. He is been instructed to call the office if he has any issues prior to his next appointment. Dr. Barrow has reviewed this note and agrees with this plan of care. This note was dictated using voice recognition software and may contain errors or omissions
== END ==
PROVIDERS: PCP Physician Assistant Medical; Visit Provider Clinical Nurse Specialist Family Health
DX: M51.16 Intervertebral disc disorders with radiculopathy, lumbar region (principal)
CPT/HCPCS: 99212

== ENCOUNTER → 2019-11-15 11:02 | Outpatient (POV) | payer OTHER, SELFPAY ==
[2019-11-15 11:42] VITALS: BP 154/99; PULSE 80; RESP 18; O2SAT 99; BMI 27.8
--- NOTE | 2019-11-15 11:49 | HMH.PMPROC ---
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 Patient has a Prialt intrathecal pain pump going at 0.29 mcg every 2 hours for total daily dose of 3.48 mcg/day. Patient was having some side effects however these have resolved. Patient is also recently found out that the reason his calcium has been elevated is he has a parathyroid tumor. Patient's go to be seen by for this. He rates the pain a 6 out of 10. Physical Exam General: Alert and oriented x3, no acute distress, pleasant and cooperative, [on room air] Lungs: Resps E/U, Symmetrical chest expansion, Eyes: PERRL Musculoskeletal: Flexion and extension of lumbar spine somewhat guarded secondary to pain, deep tendon reflexes normal, strength in upper and lower extremities [5/5], normal gait noted Neurological: speech clear, combination building inspector equal, no gross sensory deficits Procedure Details:: Informed consent was obtained and the risk and benefits of the procedure were explained to the patient. The patient was taken to the procedure room where noninvasive monitoring was placed including noninvasive blood pressure cuff and pulse oximeter. Patient's pump was interrogated and reprogrammed. The infusion rate was increased to 0.34 mcg every 2 hours for total daily dose of 4 mcg/day. The patient tolerated the procedure well. Plan and Disposition:: I will follow-up with the patient at his next intrathecal pain pump refill and reprogram. Patient has been instructed to call the office if he has any issues prior to his next appointment. Dr. Barrow has reviewed this note and agrees with this plan of care. This note was dictated using voice recognition software and may contain errors or omissions
== END ==
PROVIDERS: PCP Physician Assistant Medical; Visit Provider Clinical Nurse Specialist Family Health
DX: M51.16 Intervertebral disc disorders with radiculopathy, lumbar region (principal)
CPT/HCPCS: 62368

== ENCOUNTER → 2020-01-30 11:19 | Outpatient (POV) | payer OTHER, SELFPAY ==
[2020-01-30 11:22] VITALS: BP 143/75; PULSE 54; RESP 18; TEMP 36.8; O2SAT 98; BMI 29.7
--- NOTE | 2020-01-30 11:37 | P.CONS_ITS ---
[facility] Pain Management SOAP Note Subjective:: Patient is a pleasant 44-year-old white male who presents today for intrathecal pain pump medication discussion. Patient has been having continual side effects with his preop. He states that he has pain rating it a 5 out of 10 and that he is unable to tolerate increases due to side effects. Patient has talked with his Workmen's [employer]. along with multiple physicians in regards to him continuing work while switching to morphine and his intrathecal pump. We will move forward with this.. ROS General: no recent weight change, no fever, no sleep disturbances Respiratory: no cough, no shortness of air, no recurring pulmonary infections Cardiovascular/Peripheral Vascular: No chest pain, No palpitations, no edema, no shortness of breath. Gastrointestinal: no new onset incontinence, normal bowel movements reported Genitourinary: no new onset incontinence Musculoskeletal: Back pain, leg pain Psychiatric: normal mood/ affect Neurological: [denies new onset weakness in extremities], [denies new onset balance issues] Objective:: Physical Exam General: Alert and oriented x3, no acute distress, pleasant and cooperative, [on room air] Lungs: Resps E/U, Symmetrical chest expansion, Eyes: PERRL Musculoskeletal: Flexion and extension of lumbar spine somewhat guarded secondary to pain, deep tendon reflexes normal, strength in upper and lower extremities [5/5], antalgic gait noted Neurological: speech clear, tugboat engineer equal, no gross sensory deficits Assessment:: Degenerative disc disease lumbar spine with lumbar radiculopathy Plan:: We will change the patient over to morphine 5 mg/mL and start him up 0.25 mg/day Dr. Barrow has reviewed this note and agrees with this plan of care. This note was dictated using voice recognition software and may contain errors or omissions [facility] History I have reviewed the patient's past medical history: Yes Medical History: Reports:: Gastroesophageal Reflux Disease(GERD), Hypertension Denies:: Cancer, Diabetes Mellitus Type 1, Diabetes Mellitus Type 2, Internal Pacemaker, MRSA, Seizures *Have you ever received a pneumonia vaccine?: Yes *Have you received a flu vaccine this season?: Yes Other Medical History: Denies: Blood Transfusion Reaction Other Surgeries: Yes: Other (back x2, right leg). No: Pacemaker Amputation: No Fractures: No - *Social History Smoking Status: Current every day smoker Tobacco Type: smokeless tobacco # Packs/Day (cigarettes): 2 Alcohol Intake: never Substance Use Type: denies use *Occupational Status:: other Housing: house Household Members: spouse *Travel in the last 8 weeks: None Family Hx:: Unable to obtain
== END ==
PROVIDERS: PCP Physician Assistant Medical; Visit Provider Clinical Nurse Specialist Family Health
DX: M51.16 Intervertebral disc disorders with radiculopathy, lumbar region (principal)
CPT/HCPCS: 99212

== ENCOUNTER 2020-02-14 14:13 | Day surgery (SDC) | payer OTHER, SELFPAY ==
[2020-02-14 14:17] VITALS: BP 130/81; PULSE 61; RESP 18; TEMP 36.7; O2SAT 95; BMI 30.5
[2020-02-14 14:46] VITALS: BP 121/85; PULSE 80; RESP 18
[2020-02-14 14:47] VITALS: BP 132/85; PULSE 88; RESP 18; O2SAT 99
[2020-02-14 14:55] VITALS: BP 126/77; PULSE 61; RESP 18; O2SAT 95
--- NOTE | 2020-02-14 15:02 | HMH.PMPROC ---
- Procedure Date: 02/14/20 Time: 15:03 Anesthesiologist:: Deepali Kebede APRN Complications:: None Pre-procedure Diagnosis:: Degenerative disc disease lumbar spine with lumbar radiculopathy Post-procedure Diagnosis:: Same Indications for Procedure:: Patient is a pleasant 44-year-old white male who presents today for intrathecal pain pump refill and reprogram. Patient was on Prialt however he was having side effects in regards to it and is being switched to morphine today. We will start him at 0.25 mg a day of morphine. He rates his pain today a 5 out of 10. Physical Exam General: Alert and oriented x3, no acute distress, pleasant and cooperative, [on room air] Lungs: Resps E/U, Symmetrical chest expansion, Eyes: PERRL Musculoskeletal: Flexion and extension of lumbar spine somewhat guarded secondary to pain, deep tendon reflexes normal, strength in upper and lower extremities [5/5], slightly antalgic gait noted Neurological: speech clear, disc pad grinding machine feeder equal, no gross sensory deficits Procedure Details:: Informed consent was obtained and the risk and benefits of the procedure were explained to the patient. The patient was taken to the procedure room where noninvasive monitoring was placed including noninvasive blood pressure cuff and pulse oximeter. Patient's pump was interrogated. The area over the pump was cleansed with chlorhexidine as a cleansing solution. In sterile fashion the pump was accessed with a 22-gauge needle. Approximately 11 mL's were removed of the pump solution and discarded appropriately. The pump was then refilled with 20 mL's of morphine 5 mg/mL. The needle was withdrawn and a bandage was placed over the puncture site. The infusion rate was reprogrammed to 0.25 mg of morphine a day.. The patient tolerated the procedure well. Plan and Disposition:: We will follow-up with the patient 1 to 2 weeks in the office reassess his symptoms at that time and make any adjustments as necessary. His PTC was turned off. [facility] #[id number] reviewed and appropriate. Dr. Barrow has reviewed this note and agrees with this plan of care. This note was dictated using voice recognition software and may contain errors or omissions
== END 2020-02-14 14:55 | disposition home or self-care (01) ==
PROVIDERS: PCP Physician Assistant Medical; Visit Provider Clinical Nurse Specialist Family Health
DX: M51.16 Intervertebral disc disorders with radiculopathy, lumbar region (principal); I10 Essential (primary) hypertension; K21.9 Gastro-esophageal reflux disease without esophagitis; Z72.0 Tobacco use
CPT/HCPCS: 62370

== ENCOUNTER → 2020-02-21 09:44 | Outpatient (POV) | payer OTHER, SELFPAY ==
[2020-02-21 10:05] VITALS: BP 132/87; PULSE 85; RESP 18; TEMP 36.8; O2SAT 99; BMI 29.8
--- NOTE | 2020-02-21 11:24 | HMH.PMPROC ---
- Procedure Date: 02/21/20 Time: 11:24 Anesthesiologist:: Deepali Kebede APRN Complications:: None Pre-procedure Diagnosis:: Degenerative disc disease lumbar spine with lumbar radiculopathy Post-procedure Diagnosis:: Same Indications for Procedure:: Patient is a pleasant 44-year-old white male who we have changed over intrathecal ziconotide to morphine. He is at 0.25 mg/day. He does have slight urinary hesitancy. We will put him on Flomax 4 mg 1 p.o. daily for a month. He rates his pain a 4 out of 10. Patient states that he is having no other side effects to the medication. We will set his PTC up today and give him a slight increase in his medicine. Physical Exam General: Alert and oriented x3, no acute distress, pleasant and cooperative, [on room air] Lungs: Resps E/U, Symmetrical chest expansion, Eyes: PERRL Musculoskeletal: Flexion and extension of lumbar spine somewhat guarded secondary to pain, deep tendon reflexes normal, strength in upper and lower extremities [5/5], slightly antalgic gait noted Neurological: speech clear, software performance engineer equal, no gross sensory deficits Procedure Details:: Informed consent was obtained and the risk and benefits of the procedure were explained to the patient. The patient was taken to the procedure room where noninvasive monitoring was placed including noninvasive blood pressure cuff and pulse oximeter. Patient's pump was interrogated and reprogrammed. The infusion rate was increased to 0.3 mg of morphine and his PTC was started at 0.03 mg every 6 hours as needed. The patient tolerated the procedure well. Plan and Disposition:: I will see the patient back at his next intrathecal pain pump refill and reprogram he has been instructed to call the office if he has any issues prior to his next appointment. Dr. Barrow has reviewed this note and agrees with this plan of care. This note was dictated using voice recognition software and may contain errors or omissions
== END ==
PROVIDERS: PCP Physician Assistant Medical; Visit Provider Clinical Nurse Specialist Family Health
DX: M51.16 Intervertebral disc disorders with radiculopathy, lumbar region (principal)
CPT/HCPCS: 62368

== ENCOUNTER → 2020-04-09 09:23 | Outpatient (POV) | payer OTHER, SELFPAY ==
--- NOTE | 2020-04-09 11:12 | P.PCN_ITS ---
- Procedure Date: 04/09/20 Time: 11:12 Anesthesiologist:: Damaris Louis APRN Complications:: None Pre-procedure Diagnosis:: Degenerative disc disease lumbar spine with lumbar radiculopathy symptoms Post-procedure Diagnosis:: Same Indications for Procedure:: Patient is a 44-year-old white male who presents today for intrathecal pain pump adjustment. He is being treated for low back pain with lumbar radiculopathy symptoms. Patient was previously on psych on a tied and was having reported head fogginess. As result, he was changed to morphine. He did initially have some urinary hesitancy after the medication change. Patient says he is doing much better at this time with urinary side effects. He denies any issues at this time. He is no longer taking Flomax. He does rate his pain a 3 out of 10 with sitting and a 5 out of 10 with standing. He would like his medication increased today. He is currently on 0.3 mg/day. The patient's urine drug screens and Rufino's have been appropriate. Physical exam General: Alert and oriented x3, no acute distress, pleasant and cooperative, [on room air] Lungs: Respirations even and unlabored, symmetrical chest expansion Eyes: PERRL Musculoskeletal: Flexion and extension of lumbar spine somewhat guarded secondary to pain, deep tendon reflexes normal, strength in upper and lower extremities [5/5], [abnormal gait noted] Neurological: Speech clear, registration scheduling specialist equal, no gross sensory deficit Procedure Details:: Informed consent was obtained and the risk and benefits of the procedure were explained to the patient. Patient was taken to the procedure room where noninvasive monitoring was placed including noninvasive blood pressure cuff and pulse oximeter. Patient's pump was interrogated and was reprogrammed to morphine at 0.4 mg/day. The patient tolerated the procedure well with no complications. Plan and Disposition:: Patient I did discuss if he does have any side effects with urinary hesitancy or any other issues to call the clinic. We will otherwise follow-up with him in 2 weeks to reassess his symptoms. He has been instructed to contact the clinic if he has any concerns before his next appointment. The patient and I specifically discussed risk factors for COVID19. These risks include, but are not limited to age greater than 60, heart or lung disease, diabetes, immunosuppression, and travel. We also discussed NSAIDs may worsen COVID19 infection or symptoms. Patient should not use NSAIDs to treat COVID19 signs or symptoms. Patient was also informed that any type of corticosteroid of any form (oral or injection) will decrease the patient's immune system response and may increase the likelihood of COVID19 infection and symptoms[address]. Barrow has reviewed this note and agrees with this plan of care. This note was dictated using voice recognition software and make contain errors or omissions.
== END ==
PROVIDERS: PCP Physician Assistant Medical; Visit Provider Clinical Nurse Specialist Family Health
DX: M51.16 Intervertebral disc disorders with radiculopathy, lumbar region (principal); I10 Essential (primary) hypertension; K21.9 Gastro-esophageal reflux disease without esophagitis; Z87.39 Personal history of other diseases of the musculoskeletal system and connective tissue; Z72.0 Tobacco use
CPT/HCPCS: 62368

== ENCOUNTER → 2020-04-23 09:45 | Outpatient (POV) | payer OTHER, SELFPAY ==
--- NOTE | 2020-04-23 10:19 | HMH.PMPROC ---
- Procedure Date: 04/23/20 Time: 10:19 Anesthesiologist:: Deepali Kebede APRN Complications:: None Pre-procedure Diagnosis:: Degenerative disc disease lumbar spine with lumbar radiculopathy symptoms Post-procedure Diagnosis:: Same Indications for Procedure:: Patient is a pleasant 44-year-old white male who presents today for intrathecal pain pump adjustment. He is currently 0.4 mg a day of morphine. Overall doing well rating his pain today at 3 out of 10. He would like a slight increase. He denies side effects. Physical Exam General: Alert and oriented x3, no acute distress, pleasant and cooperative, [on room air] Lungs: Resps E/U, Symmetrical chest expansion, Eyes: PERRL Musculoskeletal: Flexion and extension of lumbar spine somewhat guarded secondary to pain, deep tendon reflexes normal, strength in upper and lower extremities [5/5], normal gait noted Neurological: speech clear, corporate sales representative equal, no gross sensory deficits Procedure Details:: Informed consent was obtained and the risk and benefits of the procedure were explained to the patient. The patient was taken to the procedure room where noninvasive monitoring was placed including noninvasive blood pressure cuff and pulse oximeter. Patient's pump was interrogated and reprogrammed. The infusion rate was increased to 0.5 mg a day of morphine. The patient tolerated the procedure well. Plan and Disposition:: I will follow-up with the patient at his next intrathecal pain pump refill and reprogram he has been instructed to call the office if he has any issues prior to his next appointment. Dr. Barrow has reviewed this note and agrees with this plan of care. This note was dictated using voice recognition software and may contain errors or omissions
[2020-04-23 10:20] VITALS: BP 132/88; PULSE 79; RESP 18; O2SAT 98; BMI 31.1
== END ==
PROVIDERS: PCP Physician Assistant Medical; Visit Provider Clinical Nurse Specialist Family Health
DX: M51.16 Intervertebral disc disorders with radiculopathy, lumbar region (principal); M96.1 Postlaminectomy syndrome, not elsewhere classified
CPT/HCPCS: 62368

== ENCOUNTER 2020-06-11 14:58 | Day surgery (SDC) | payer OTHER, SELFPAY ==
[2020-06-11 15:18] VITALS: BP 137/84; PULSE 76; RESP 19; TEMP 37.1; O2SAT 99; BMI 31.1
[2020-06-11 15:58] VITALS: BP 132/78; PULSE 74; RESP 18
[2020-06-11 16:00] VITALS: BP 132/74; PULSE 79; RESP 18; O2SAT 98
--- NOTE | 2020-06-11 16:01 | P.PCN_ITS ---
- Procedure Date: 06/11/20 Time: 16:02 Anesthesiologist:: Deepali Kebede APRN Complications:: None Pre-procedure Diagnosis:: Degenerative disc disease lumbar spine lumbar radiculopathy symptoms Post-procedure Diagnosis:: Same Indications for Procedure:: Patient is a pleasant 44-year-old white male who presents today for intrathecal pain pump refill and reprogram. He is currently on an intrathecal dose of morphine. He is doing quite well rating his pain a 3 out of 10. He would like a slight increase and be changed back to periodic flow. Patient denies side effects with medication. [facility] #[id number] reviewed and appropriate. Physical Exam General: Alert and oriented x3, no acute distress, pleasant and cooperative, [on room air] Lungs: Resps E/U, Symmetrical chest expansion, Eyes: PERRL Musculoskeletal: Flexion and extension of lumbar spine somewhat guarded secondary to pain, deep tendon reflexes normal, strength in upper and lower extremities [5/5], antalgic gait noted Neurological: speech clear, master sheet clerk equal, no gross sensory deficits Procedure Details:: Informed consent was obtained and the risk and benefits of the procedure were explained to the patient. The patient was taken to the procedure room where noninvasive monitoring was placed including noninvasive blood pressure cuff and pulse oximeter. Patient's pump was interrogated. The area over the pump was cleansed with chlorhexidine as a cleansing solution. In sterile fashion the pump was accessed with a 22-gauge needle. Approximately 9.5 mL's were removed of the pump solution and discarded appropriately. The pump was then refilled with 20 mL's of morphine 5 mg/mL. The needle was withdrawn and a bandage was placed over the puncture site. The infusion rate was reprogrammed to 0.062 mg every 2 hours for total daily dose of 0.75 mg/day. The patient tolerated the procedure well. Plan and Disposition:: I will follow-up with the patient at his next medical pain pump refill and reprogram he has been instructed to call the office if he has any issues prior to his next appointment. Dr. Barrow has reviewed this note and agrees with this plan of care. This note was dictated using voice recognition software and may contain errors or omissions
[2020-06-11 16:06] VITALS: BP 123/85; PULSE 73; RESP 18; O2SAT 99
== END 2020-06-11 16:07 | disposition home or self-care (01) ==
LOC: SC.PAINP 15:00
PROVIDERS: PCP Physician Assistant Medical; Visit Provider Clinical Nurse Specialist Family Health
DX: M51.16 Intervertebral disc disorders with radiculopathy, lumbar region (principal); I10 Essential (primary) hypertension; E07.9 Disorder of thyroid, unspecified; Z87.39 Personal history of other diseases of the musculoskeletal system and connective tissue; M96.1 Postlaminectomy syndrome, not elsewhere classified; Z79.899 Other long term (current) drug therapy
CPT/HCPCS: 62370

== ENCOUNTER → 2020-07-23 08:04 | Outpatient (POV) | payer OTHER, SELFPAY ==
--- NOTE | 2020-07-23 08:31 | P.PCN_ITS ---
- Procedure Date: 07/23/20 Time: 08:31 Anesthesiologist:: Deepali Kebede APRN Complications:: None Pre-procedure Diagnosis:: Degenerative disc disease lumbar spine lumbar radiculopathy symptoms Post-procedure Diagnosis:: Same Indications for Procedure:: Patient is pleasant 44-year-old white male who presents today for intrathecal pain pump adjustment. He is currently on intrathecal dose of morphine going at 0.075 mg every 2 hours for total daily dose of 0.75 mg of morphine a day. He denies side effects to his medication his pain is beginning to increase. He rates his pain a 4 out of 10. Patient's Rufino reviewed Rufino #[id number]. Physical Exam General: Alert and oriented x3, no acute distress, pleasant and cooperative, [on room air] Lungs: Resps E/U, Symmetrical chest expansion, Eyes: PERRL Musculoskeletal: Flexion and extension of lumbar spine somewhat guarded secondary to pain, deep tendon reflexes normal, strength in upper and lower extremities [5/5], slightly antalgic gait noted Neurological: speech clear, ship design teacher equal, no gross sensory deficits Procedure Details:: Informed consent was obtained and the risk and benefits of the procedure were explained to the patient. The patient was taken to the procedure room where noninvasive monitoring was placed including noninvasive blood pressure cuff and pulse oximeter. Patient's pump was interrogated and reprogrammed. The infusion rate was increased to 0.08 mg every 2 hours for total daily dose of 0.96 mg of morphine a day. The patient tolerated the procedure well. Plan and Disposition:: I will see the patient back at his next intrathecal pain pump refill and reprogram patient's been instructed to call the office if he has any issues prior to his next appointment. Dr. Barrow has reviewed this note and agrees with this plan of care. This note was dictated using voice recognition software and may contain errors or omissions
[2020-07-23 08:36] VITALS: BP 125/88; PULSE 78; RESP 18; O2SAT 98; BMI 31.1
== END ==
PROVIDERS: PCP Physician Assistant Medical; Visit Provider Clinical Nurse Specialist Family Health
DX: M51.16 Intervertebral disc disorders with radiculopathy, lumbar region (principal); Z45.1 Encounter for adjustment and management of infusion pump
CPT/HCPCS: 62368

== ENCOUNTER 2020-09-10 13:36 | Day surgery (SDC) | payer OTHER, SELFPAY ==
[2020-09-10 13:51] VITALS: BP 131/89; PULSE 94; TEMP 36.8; O2SAT 98; BMI 31.1
[2020-09-10 14:18] VITALS: BP 138/88; PULSE 85; RESP 18; TEMP 36.2; O2SAT 98
[2020-09-10 14:19] VITALS: BP 137/74; PULSE 74; RESP 18; O2SAT 98
--- NOTE | 2020-09-10 14:20 | HMH.PMPROC ---
- Procedure Date: 09/10/20 Time: 14:20 Anesthesiologist:: Deepali Kebede APRN Complications:: None Pre-procedure Diagnosis:: Degenerative disc disease lumbar spine lumbar radiculopathy symptoms Post-procedure Diagnosis:: Same Indications for Procedure:: Patient is a pleasant 44-year-old white male presents today for thecal pain pump refill and reprogram. Patient is currently on intrathecal dose of 0.08 mg every 2 hours. Patient's Rufino #[id number] reviewed and appropriate. Drug screens have been appropriate. He would like an increase in his medication. He rates his pain today a 6 out of 10. Procedure Details:: Informed consent was obtained and the risk and benefits of the procedure were explained to the patient. The patient was taken to the procedure room where noninvasive monitoring was placed including noninvasive blood pressure cuff and pulse oximeter. Patient's pump was interrogated. The area over the pump was cleansed with chlorhexidine as a cleansing solution. In sterile fashion the pump was accessed with a 22-gauge needle. Approximately 6 mL's were removed of the pump solution and discarded appropriately. The pump was then refilled with 20 mL's of morphine 5 mg/mL. The needle was withdrawn and a bandage was placed over the puncture site. The infusion rate was reprogrammed to 0.1 mg every 2 hours for total daily dose 1.2 mg/day the patient tolerated the procedure well. Plan and Disposition:: I will follow-up with the patient at his next intrathecal pain pump refill and reprogram he has been instructed to call the office if he has any issues prior to his next appointment. Dr. Barrow has reviewed this note and agrees with this plan of care. This note was dictated using voice recognition software and may contain errors or omissions
[2020-09-10 14:30] VITALS: BP 146/86; PULSE 87; RESP 18; O2SAT 98
== END 2020-09-10 14:31 | disposition home or self-care (01) ==
LOC: SC.PAINP 13:37
PROVIDERS: PCP Physician Assistant Medical; Visit Provider Clinical Nurse Specialist Family Health
DX: M51.16 Intervertebral disc disorders with radiculopathy, lumbar region (principal); Z45.1 Encounter for adjustment and management of infusion pump; I10 Essential (primary) hypertension; K21.9 Gastro-esophageal reflux disease without esophagitis; K58.9 Irritable bowel syndrome, unspecified; G43.909 Migraine, unspecified, not intractable, without status migrainosus; E03.9 Hypothyroidism, unspecified; Z88.6 Allergy status to analgesic agent; Z91.013 Allergy to seafood; Z79.899 Other long term (current) drug therapy
CPT/HCPCS: 62370

== ENCOUNTER 2020-11-16 11:25 | Day surgery (SDC) | payer OTHER, SELFPAY ==
[2020-11-16 11:34] VITALS: BP 159/92; PULSE 85; RESP 18; TEMP 36.4; O2SAT 99; BMI 32.5
[2020-11-16 11:58] VITALS: BP 136/98; PULSE 77; RESP 18; O2SAT 99
[2020-11-16 12:04] VITALS: BP 138/92; PULSE 74; RESP 18; O2SAT 98
[2020-11-16 12:25] VITALS: BP 148/94; PULSE 72; RESP 18; O2SAT 99
--- NOTE | 2020-11-16 12:44 | HMH.PMPROC ---
- Procedure Date: 11/16/20 Time: 12:44 Anesthesiologist:: Grupo Barrow MD Complications:: None Pre-procedure Diagnosis:: Degenerative disc disease of lumbar spine with lumbar radiculopathy symptoms Post-procedure Diagnosis:: Same Indications for Procedure:: Patient is a pleasant 44-year-old white male who we have been treating for low back pain with lumbar radiculopathy symptoms. He currently has an intrathecal morphine pain pump 0.1 0.2 mg/day. He is on periodic flow at 0.1 mg every 2 hours. He has increasing pain in the morning when he gets up. After he moves around some his pain does get better. We will refill him today. We are increasing his concentration to 10 mg/mL. We will put him at constant flow and increase him to 1.4 mg/day. Rufino and drug screen are all appropriate. He does have an antalgic gait. Motor strength of the lower extremities is 5/5. There is no gross sensory deficit. Procedure Details:: Pain pump refill under fluoroscopy Informed consent was obtained and the risks and benefits of the procedure was explained to the patient. The patient was taken to the procedure room. The pump was interrogated. The area over the pump was prepped using ChloraPrep. The pump was accessed with a 22-gauge needle. Approximately 5 mL's of the intrathecal solution was withdrawn and discarded. The pump was then refilled with 20 mL's of intrathecal morphine 10 mg per ml under fluoroscopic guidance. The pump was interrogated and the infusion was changed to constant flow at 1.4 mg/day. The patient tolerated the procedure well with no complication. Plan and Disposition:: We will follow-up with this patient in 1 week. We will reevaluate his symptoms and if need be we can change him to multiple rates with 4 time periods starting at 6 AM with 0.4 mg, noon 0.3 mg, 6 PM 0.3 mg and midnight 0.4 mg. Again total daily dose will be 1.4 mg/day
== END 2020-11-16 12:32 | disposition home or self-care (01) ==
LOC: SC.PAINP 11:27
PROVIDERS: PCP Physician Assistant Medical; Visit Provider Anesthesiology
DX: M51.16 Intervertebral disc disorders with radiculopathy, lumbar region (principal); Z45.1 Encounter for adjustment and management of infusion pump; Z87.39 Personal history of other diseases of the musculoskeletal system and connective tissue; I10 Essential (primary) hypertension; E03.9 Hypothyroidism, unspecified; K21.9 Gastro-esophageal reflux disease without esophagitis; Z88.6 Allergy status to analgesic agent; Z91.013 Allergy to seafood; Z79.899 Other long term (current) drug therapy
CPT/HCPCS: 62370

== ENCOUNTER 2021-03-01 08:08 | Day surgery (SDC) | payer OTHER, SELFPAY ==
[2021-03-01 08:35] VITALS: BP 157/97; PULSE 84; RESP 18; TEMP 36.6; O2SAT 98; BMI 33.2
[2021-03-01 08:54] VITALS: BP 125/75; PULSE 73; RESP 18; O2SAT 97
[2021-03-01 08:56] VITALS: PULSE 73; RESP 18; O2SAT 97
[2021-03-01 09:25] VITALS: BP 139/91; PULSE 68; RESP 20; O2SAT 98
--- NOTE | 2021-03-01 13:50 | HMH.PMPROC ---
- Procedure Date: 03/01/21 Time: 13:50 Anesthesiologist:: Susan Serna MD Complications:: None Pre-procedure Diagnosis:: Degenerative disc disease of the lumbar spine with lumbar radiculopathy Post-procedure Diagnosis:: Same Indications for Procedure:: Patient is a very pleasant 44-year-old white male who presents today for intrathecal pump refill and reprogram. He is currently on morphine 10 mg/mL with periodic flow setting with 0.03 mg boluses 4 times a day with a 6-hour lockout. Patient reports that his pain for the most part is pretty well controlled on this regimen however he continues to have increased pain in the morning. He also notes new onset of bilateral lower extremity edema worse on the left than the right. He states that he was working on night and slept for a few hours in his truck and woke up with this new onset of swelling. He states he slept in his truck before and is never experienced these symptoms before. His other comorbidities include irritable bowel syndrome he states and has previously experienced chest pressure that he is experiencing today. He denies any fevers chills or night sweats. He states that he has an appointment with his primary care physician today in the afternoon to get this evaluated. In regards to his intrathecal pain pump, he has been on warfarin for some time now and no overt changes have been made. Not experiencing any other new symptoms at this time that can be attributed to his intrathecal morphine. Plan for today is for the patient to undergo an intrathecal pump refill and reprogram. We will not make any changes to his dose adjustments at this time even the concurrent new onset of symptoms as stated above. Procedure Details:: Informed consent was obtained and the risks and benefits of the procedure was explained to the patient. The patient was taken to the procedure room. The pump was interrogated. The area over the pump was prepped using ChloraPrep. The pump was accessed with a 22-gauge needle. Approximately 5.5 mL's of the intrathecal solution was withdrawn and discarded. The pump was then refilled with 20 mL's of intrathecal morphine 10mg/ml]. The pump was interrogated and the infusion was [unchanged]. [ PTC was needed at 0.03 mcg 4 times a day with a 6 hour lockout]. The patient tolerated the procedure well with no complications. Next refill date is on [June 30, 2021]. Plan and Disposition:: Follow-up with with this patient in 1 week.Will reevaluate pain symptoms at that time and make adjustments that time after a full medical work-up has been conducted regarding his new onset bilateral lower extremity edema. His next refill date is June 30, 2021.
== END 2021-03-01 09:25 | disposition home or self-care (01) ==
LOC: SC.PAINP 08:10
PROVIDERS: PCP Physician Assistant Medical; Visit Provider Anesthesiology Pain Medicine
DX: M51.16 Intervertebral disc disorders with radiculopathy, lumbar region (principal); Z45.1 Encounter for adjustment and management of infusion pump
CPT/HCPCS: 95991

== ENCOUNTER 2021-06-03 13:24 | Day surgery (SDC) | payer OTHER, SELFPAY ==
[2021-06-03 13:39] VITALS: BP 159/99; PULSE 63; RESP 18; TEMP 36.2; O2SAT 100; BMI 32.5
--- NOTE | 2021-06-03 14:05 | HMH.PMPROC ---
- Procedure Date: 06/03/21 Time: 14:05 Anesthesiologist:: Damaris Louis APRN Complications:: None Pre-procedure Diagnosis:: Degenerative disc disease lumbar spine with lumbar radiculopathy symptoms Post-procedure Diagnosis:: Same Indications for Procedure:: Patient is a 45-year-old white male who presents today for intrathecal pain pump refill and reprogram. He has been treated for degenerative disc disease lumbar spine with lumbar radiculopathy symptoms. He is currently on multiple rates. The patient has pain that is worse in the a.m. upon awakening. Dr. Serna did place the patient in multiple rate at 0.4 mg from midnight to 12 PM and from 12 PM to midnight at 0.3 mg. Patient says he did not get any relief.. He is reporting to be having sweating with chills. This may be medication related. He would like an increase today. We will see if this worsens his symptoms. If the patient symptoms do worsen, we may need to change the patient's medication to Dilaudid. He will call the clinic if his symptoms do worsen. If he does contact the clinic, we will need to order medication change out. Patient's Rufino #[id number] has been reviewed and is appropriate. He rates his pain a 7 out of 10 today. We will change the patient back to periodic flow and increase him today. Physical exam General: Alert and oriented x3, no acute distress, pleasant and cooperative, [on room air] Lungs: Respirations even and unlabored, symmetrical chest expansion Eyes: PERRL Musculoskeletal: Flexion and extension of lumbar [spine] somewhat guarded secondary to pain, strength in upper and lower extremities [5/5], [antalgic gait noted] Neurological: Speech clear, [telecommunications field technician equal], no gross sensory deficit Procedure Details:: Informed consent was obtained and the risk and benefits of the procedure were explained to the patient. The patient was taken to the procedure room where noninvasive monitoring was placed including noninvasive blood pressure cuff and pulse oximeter. Patient's pump was interrogated. The area over the pump was cleansed with chlorhexidine as a cleansing solution. In sterile fashion the pump was accessed with a 22-gauge needle. Approximately 6 mls of the pump solution was removed and discarded appropriately. The pump was then refilled with 20 mL's of morphine 10 mg per ml. The needle was withdrawn and a bandage was placed over the puncture site. The infusion rate was reprogrammed at increased to morphine at 0.14 mg every 2 hours.. The patient tolerated well with no complication. Plan and Disposition:: We will see the patient back in the clinic at the next intrathecal refill. Patient has been instructed to contact the clinic with any concerns before the next appointment. If the patient contact the clinic with worsening symptoms of sweating due to the medication, I am with his increase in dosing, we will change the patient out to Dilaudid. Dr. Barrow has reviewed this note and agrees with this plan of care. This note was dictated using voice recognition software and make contain errors or omissions.
[2021-06-03 14:09] VITALS: BP 142/78; PULSE 62; RESP 18; O2SAT 98
[2021-06-03 14:10] VITALS: BP 142/78; PULSE 81; RESP 18; O2SAT 98
[2021-06-03 14:20] VITALS: BP 147/96; PULSE 63; RESP 18; O2SAT 96
[2021-06-03 20:27] LABS: Amphetamine/Metha Screen,Urine Negative ng/ml (<1000)
[2021-06-03 20:28] LABS: Barbiturates Screen,Urine Negative ng/ml (<200)
[2021-06-03 20:29] LABS: Benzodiazepines Screen,Urine Negative ng/ml (<200); Cannabinoid Screen,Urine Negative ng/ml (<50)
[2021-06-03 20:30] LABS: Cocaine Screen,Urine Negative ng/ml (<300); Methadone Screen,Urine Negative ng/ml (<300)
[2021-06-03 20:31] LABS: Opiate Screen,Urine Negative ng/ml (<300)
[2021-06-03 20:32] LABS: Phencyclidine Screen,Urine Negative ng/ml (<25)
== END 2021-06-03 14:20 | disposition home or self-care (01) ==
PROVIDERS: Visit Provider Clinical Nurse Specialist Family Health
DX: M51.16 Intervertebral disc disorders with radiculopathy, lumbar region (principal); Z45.1 Encounter for adjustment and management of infusion pump
CPT/HCPCS: 62370; 80305

== ENCOUNTER 2021-09-02 12:41 | Day surgery (SDC) | payer OTHER, SELFPAY ==
[2021-09-02 13:02] VITALS: BP 165/99; PULSE 82; RESP 18; TEMP 36.6; O2SAT 94; BMI 35.2
--- NOTE | 2021-09-02 13:03 | HMH.PMPROC ---
- Procedure Date: 09/02/21 Time: 13:03 Anesthesiologist:: Damaris Louis APRN Complications:: None Pre-procedure Diagnosis:: Degenerative disc disease lumbar spine with lumbar radiculopathy symptoms Post-procedure Diagnosis:: Same Indications for Procedure:: Patient is a pleasant 45-year-old male who presents today for intrathecal pain pump [refill] [and reprogram]. The patient is being treated for degenerative disc disease of the lumbar spine with lumbar radiculopathy symptoms patient is currently being managed with morphine 10 mg/mL at a periodic flow rate of 0.14 mg per bolus. Patient is still complaining of severe sweating. Patient says that he thought he could be his hormone but he got his testosterone checked and is normal. Patient rates pain a 5 out of 10. Drug screen is appropriate. Rufino [ ] has been reviewed and is appropriate. Physical exam General: Alert and oriented x3, no acute distress, pleasant and cooperative, [on room air] Lungs: Respirations even and unlabored, symmetrical chest expansion Eyes: PERRL Musculoskeletal: Flexion and extension of lumbar [spine] somewhat guarded secondary to pain, [antalgic gait noted] Neurological: Speech clear, no gross sensory deficit Procedure Details:: Informed consent was obtained and the risk and benefits of the procedure were explained to the patient. The patient was taken to the procedure room where noninvasive monitoring was placed including noninvasive blood pressure cuff and pulse oximeter. Patient's pump was interrogated. The area over the pump was cleansed with chlorhexidine as a cleansing solution. In sterile fashion the pump was accessed with a 22-gauge needle. Approximately 7 mls of the pump solution was removed and discarded appropriately. The pump was then refilled with 20 mL's of morphine 10 mg/mL. The needle was withdrawn and a bandage was placed over the puncture site. The infusion rate was reprogrammed at consistent flow rate of morphine 1.34 mg/day with a PTC of 0.13 mg 4 times a day at a total of morphine 1.86 mg total per day. The patient tolerated well with no complication. Plan and Disposition:: We will see the patient back in the clinic at the next intrathecal refill. Patient has been instructed to contact the clinic with any concerns before the next appointment. Dr. Barrow has reviewed this note and agrees with this plan of care. This note was dictated using voice recognition software and make contain errors or omissions.
[2021-09-02 13:17] VITALS: BP 155/82; PULSE 103; RESP 18; O2SAT 97
[2021-09-02 13:19] VITALS: PULSE 90; RESP 18; O2SAT 97
[2021-09-02 13:35] VITALS: BP 161/105; PULSE 73; RESP 20; O2SAT 98
== END 2021-09-02 13:36 | disposition home or self-care (01) ==
LOC: SC.PAINP 12:42
PROVIDERS: PCP Physician Assistant Medical; Visit Provider Clinical Nurse Specialist Family Health
DX: M51.16 Intervertebral disc disorders with radiculopathy, lumbar region (principal); Z45.1 Encounter for adjustment and management of infusion pump; I10 Essential (primary) hypertension; N40.0 Benign prostatic hyperplasia without lower urinary tract symptoms; E89.0 Postprocedural hypothyroidism; Z72.0 Tobacco use
CPT/HCPCS: 62370

== ENCOUNTER 2021-12-02 13:35 | Day surgery (SDC) | payer OTHER, SELFPAY ==
[2021-12-02 13:59] VITALS: BP 134/47; BP 138/50; BP 149/88; BP 155/99; PULSE 70; PULSE 72; PULSE 77; PULSE 95; RESP 18; RESP 20; TEMP 36.6; O2SAT 99; BMI 35.9
--- NOTE | 2021-12-02 14:22 | HMH.PMPROC ---
- Procedure Date: 12/02/21 Time: 14:22 Anesthesiologist:: Florentino Yost CRNA Complications:: None Pre-procedure Diagnosis:: Disc disease lumbar spine multilevels. Post lumbar fusion syndrome. Post-procedure Diagnosis:: Same Indications for Procedure:: Patient is a very pleasant 45-year-old male who comes today for intrathecal pain pump refill and reprogram. Patient is being treated by us for degenerative disc disease lumbar spine multilevels with lumbar radiculopathy symptoms. Post fusion syndrome lumbar spine. Patient still complain of sweating. Patient rate was turned down by 20% at his last refill. We will continue turning him down today by 20%. We will ultimately change him from morphine to bupivacaine. Procedure Details:: Details of the procedure were explained to the patient. The patient was taken to the procedure room placed in the prone position on the fluoroscopy table. The area over the lumbar spine was cleaned using chlorhexidine as a cleansing solution. The pump was accessed using a 22-gauge needle under fluoroscopy. 7.2 mL of occasion was removed and discarded appropriately. The pain pump was filled with with intrathecal morphine 10 mg/mL. The pump rate was decreased 20% to 1.34 mg/day. Today we will reduce him again by 20%. His new rate will be 1.1 mg/day. Plan and Disposition:: Patient return to the clinic in 2 weeks for medication change on the intrathecal pain pump.
[2021-12-02 16:19] LABS: Amphetamine/Metha Screen,Urine Negative ng/ml (<1000)
[2021-12-02 16:20] LABS: Barbiturates Screen,Urine Negative ng/ml (<200); Benzodiazepines Screen,Urine Negative ng/ml (<200)
[2021-12-02 16:21] LABS: Cocaine Screen,Urine Negative ng/ml (<300)
[2021-12-02 16:22] LABS: Cannabinoid Screen,Urine Negative ng/ml (<50); Methadone Screen,Urine Negative ng/ml (<300)
[2021-12-02 16:23] LABS: Opiate Screen,Urine Negative ng/ml (<300)
[2021-12-02 16:24] LABS: Phencyclidine Screen,Urine Negative ng/ml (<25)
[2021-12-19 14:13] LABS: Codeine Negative (Cutoff=100); Hydrocodone Negative (Cutoff=100); Hydromorphone Negative (Cutoff=100); Morphine Positive (.); Opiates Positive (.)
== END 2021-12-02 14:29 | disposition home or self-care (01) ==
LOC: SC.PAINP 13:38
PROVIDERS: PCP Physician Assistant Medical; Visit Provider Nurse Anesthetist, Certified Registered
DX: M51.16 Intervertebral disc disorders with radiculopathy, lumbar region (principal); M96.1 Postlaminectomy syndrome, not elsewhere classified; Z45.1 Encounter for adjustment and management of infusion pump; I10 Essential (primary) hypertension; K21.9 Gastro-esophageal reflux disease without esophagitis; M19.90 Unspecified osteoarthritis, unspecified site
CPT/HCPCS: 62370; 80305; 80361; 80365; G0480

== ENCOUNTER → 2021-12-17 08:46 | Outpatient (POV) | payer OTHER, SELFPAY ==
[2021-12-17 08:55] VITALS: BP 166/99; PULSE 77; RESP 20; O2SAT 99; BMI 35.9
--- NOTE | 2021-12-17 15:03 | P.CONS_ITS ---
[facility] Pain Management SOAP Note Subjective:: This patient is a pleasant 46-year-old white male who we are treating for low back pain with lumbar radiculopathy symptoms and postlaminectomy syndrome with previous lumbar fusion. He previously was on intrathecal ziconotide and had severe side effects with this medication. Currently is on intrathecal morphine. This is helping with his pain however he has side effects including sweating. We have reduced his dose and it has help with the side effects however he now has increasing pain. We will switch him over to intrathecal Dilaudid to see if this gives him better pain relief and less side effects. Objective:: Alert and oriented x3 no acute distress. Patient does have an antalgic gait. Motor strength of the lower extremities is 5/5. There is no gross sensory deficit. Assessment:: Degenerative disc disease of lumbar spine with postlaminectomy syndrome with previous lumbar fusion and lumbar radiculopathy symptoms Plan:: We will switch him to intrathecal Dilaudid 1 mg/mL to start at 0.15 mg/day. We will order the medicine today and plan on doing this on Thursday. [facility] History Medical History: Reports:: Gastroesophageal Reflux Disease(GERD), Hypertension Denies:: Cancer, Diabetes Mellitus Type 1, Diabetes Mellitus Type 2, Internal Pacemaker, MRSA, Seizures *Have you ever received a pneumonia vaccine?: No *Have you received a flu vaccine this season?: No Other Medical History: Reports: Arthritis, Thyroid Disease. Denies: Blood Transfusion Reaction Other Surgeries: Yes: Thyroidectomy (parathyroid tumor), Other (back x2, right leg). No: Pacemaker Amputation: No Fractures: No - *Social History Smoking Status: Current every day smoker Tobacco Type: smokeless tobacco # Packs/Day (cigarettes): 2 Alcohol Intake: never Substance Use Type: denies use *Occupational Status:: employed Housing: house Household Members: other *Travel in the last 8 weeks: None Family Hx:: Unable to obtain
== END ==
PROVIDERS: PCP Physician Assistant Medical; Visit Provider Anesthesiology
DX: M51.16 Intervertebral disc disorders with radiculopathy, lumbar region (principal); M96.1 Postlaminectomy syndrome, not elsewhere classified
CPT/HCPCS: 99212; G0463

== ENCOUNTER 2021-12-20 11:20 | Day surgery (SDC) | payer OTHER, SELFPAY ==
[2021-12-20 11:50] VITALS: BP 124/80; PULSE 77; RESP 18; TEMP 36.2; O2SAT 99; BMI 35.9
[2021-12-20 12:11] VITALS: BP 158/76; PULSE 76; RESP 18; O2SAT 99
[2021-12-20 12:38] VITALS: BP 155/99; PULSE 87; RESP 18; O2SAT 98
[2021-12-20 12:50] VITALS: BP 149/94; PULSE 74; RESP 20; O2SAT 98
--- NOTE | 2021-12-20 13:39 | HMH.PMPROC ---
- Procedure Date: 12/20/21 Time: 13:39 Anesthesiologist:: Grupo Barrow MD Complications:: None Pre-procedure Diagnosis:: Degenerative disc disease of lumbar spine with lumbar radiculopathy symptoms with postlaminectomy syndrome lumbar spine with previous lumbar fusion with current side effects with current intrathecal morphine infusion Post-procedure Diagnosis:: Same Indications for Procedure:: The patient is a pleasant 46-year-old white male who we are treating for low back pain with lumbar radiculopathy symptoms and postlaminectomy syndrome of lumbar spine with previous lumbar fusion. He has increasing sweating with his current intrathecal morphine infusion. We have decreased his dose significantly. He now has increasing pain and still has side effects. We are switching him over to intrathecal Dilaudid today. We will start him at 0.15 mg/day of intrathecal Dilaudid. Procedure Details:: Informed consent was obtained and the risks and benefits of the procedure was explained to the patient. The patient was taken to the procedure room. The pump was interrogated. The area over the pump was prepped using ChloraPrep. The pump was accessed with a 22-gauge needle. Approximately 17 mL's of the intrathecal solution was withdrawn and discarded. The pump was then refilled with 20 mL's of intrathecal Dilaudid 1 mg/mL. The pump was interrogated and the infusion was started at 0.15 mg/day. . The patient tolerated the procedure well with no complication. Plan and Disposition:: We will follow-up with him in 1 week. Will reevaluate his symptoms at that time and make adjustments as needed.
== END 2021-12-20 12:42 | disposition home or self-care (01) ==
LOC: SC.PAINP 11:21
PROVIDERS: PCP Physician Assistant Medical; Visit Provider Anesthesiology
DX: M51.16 Intervertebral disc disorders with radiculopathy, lumbar region (principal); M96.1 Postlaminectomy syndrome, not elsewhere classified; Z45.1 Encounter for adjustment and management of infusion pump; M43.26 Fusion of spine, lumbar region; I10 Essential (primary) hypertension; K21.9 Gastro-esophageal reflux disease without esophagitis; Z72.0 Tobacco use; E89.0 Postprocedural hypothyroidism; Z88.6 Allergy status to analgesic agent
CPT/HCPCS: 62370; C1772

== ENCOUNTER → 2022-01-06 13:02 | Outpatient (POV) | payer OTHER, SELFPAY ==
[2022-01-06 13:30] VITALS: BP 177/86; PULSE 83; RESP 18; TEMP 37.1; O2SAT 99; BMI 23.0
--- NOTE | 2022-01-06 14:04 | P.PCN_ITS ---
- Procedure Date: 01/06/22 Time: 14:05 Anesthesiologist:: JOSÉ ANTONIO Vences Complications:: None Pre-procedure Diagnosis:: Degenerative disc disease of lumbar spine with lumbar discopathy symptoms Post-procedure Diagnosis:: Same Indications for Procedure:: Patient is a pleasant 46-year-old male who is here today for follow-up. We are currently treating the patient for degenerative disc disease of lumbar spine with lumbar radiculopathy symptoms. We are managing the patient with intrathecal pain pump. Recently, patient had morphine in his pain pump, but he was having excessive sweating because of the medication. We recently changed the patient to intrathecal Dilaudid. He is currently on Dilaudid 1 mg/mL at a rate of 0.15 mg/day. Patient states that he is doing better with this medication. He says that the swelling has gone down. He rates his pain today as 3 out of 10. He says that the only issue he had we did change to Dilaudid was that he had a headache for about a week. He states that this headache has resolved. I discussed with the patient that this might be a withdrawal symptom from changing to Dilaudid. Patient also wants us to set up his PTC device. We will set this up today. [facility] #[id number] with an active morphine equivalent of 0. Physical Exam: General: Alert and oriented x3, no acute distress, pleasant and cooperative, [on room air] Lungs: Respirations even and unlabored, symmetrical chest expansion Eyes: PERRL Musculoskeletal: Flexion and extension of lumbar [spine] somewhat guarded secondary to pain, [antalgic gait noted] Neurological: Speech clear, no gross sensory deficit Procedure Details:: Informed consent was obtained and the risk and benefits of the procedure were explained to the patient. Patient was taken to the procedure room where noninvasive monitoring was placed including noninvasive blood pressure cuff and pulse oximeter. Patient's pump was interrogated and was reprogrammed to Dilau did 0.15 mg/day. We set up of his PTC device to Dilaudid 0.015 mg up to 4 times a day. The patient tolerated the procedure well with no complications. Plan and Disposition:: We will see the patient back in the clinic at the next intrathecal refill. Patient has been instructed to contact the clinic with any concerns before the next appointment. Dr. Barrow has reviewed this note and agrees with this plan of care. This note was dictated using voice recognition software and make contain errors or omissions.
== END ==
PROVIDERS: Visit Provider Student in an Organized Health Care Education/Training Program
DX: M51.16 Intervertebral disc disorders with radiculopathy, lumbar region (principal); Z45.1 Encounter for adjustment and management of infusion pump
CPT/HCPCS: 62368; 99213; G0463

== ENCOUNTER 2022-03-10 13:01 | Day surgery (SDC) | payer OTHER, SELFPAY ==
[2022-03-10 13:17] VITALS: BP 134/80; PULSE 82; RESP 18; TEMP 36.4; O2SAT 99; BMI 31.8
[2022-03-10 13:19] VITALS: BP 153/84; PULSE 72; RESP 20; O2SAT 98; O2SAT 99
--- NOTE | 2022-03-10 13:29 | HMH.PMPROC ---
- Procedure Date: 03/10/22 Time: 13:29 Anesthesiologist:: JOSÉ ANTONIO Vences Complications:: None Pre-procedure Diagnosis:: Degenerative disc disease of lumbar spine with lumbar discopathy symptoms Post-procedure Diagnosis:: same Indications for Procedure:: Patient is a pleasant 46-year-old white male who presents today for intrathecal pain pump refill and adjustment. The patient is being treated for degenerative disc disease of lumbar spine with lumbar discopathy symptoms. Patient is currently being managed with Dilaudid 1 mg/ML at a dose of 0.15 mg a day. Patient denies any side effects from this medication. Patient rates pain a 3 out of 10. Drug screen is appropriate. Rufino [id number] has been reviewed and is appropriate. Physical exam General: Alert and oriented x3, no acute distress, pleasant and cooperative Lungs: Respirations even and unlabored, symmetrical chest expansion Eyes: PERRL Musculoskeletal: Flexion and extension of lumbar [spine] somewhat guarded secondary to pain, [antalgic gait noted] Neurological: Speech clear, no gross sensory deficit Procedure Details:: Informed consent was obtained and the risk and benefits of the procedure were explained to the patient. The patient was taken to the procedure room where noninvasive monitoring was placed including noninvasive blood pressure cuff and pulse oximeter. Patient's pump was interrogated. The area over the pump was cleansed with chlorhexidine as a cleansing solution. [Fluoroscopy was used to access the pump]. In sterile fashion the pump was accessed with a 22-gauge needle. Approximately 6 mls of the pump solution was removed and discarded appropriately. The pump was then refilled with 20 mL's of Dilaudid 1 mg/mL. The needle was withdrawn and a bandage was placed over the puncture site. The infusion rate was reprogrammed and increased to Dilaudid 0.18 mg/day. The patient tolerated well with no complication. Plan and Disposition:: We will see the patient back in the clinic at the next intrathecal refill. Patient has been instructed to contact the clinic with any concerns before the next appointment. Dr. Barrow has reviewed this note and agrees with this plan of care. This note was dictated using voice recognition software and make contain errors or omissions.
[2022-03-10 13:45] VITALS: BP 141/77; PULSE 78; RESP 20; O2SAT 98
== END 2022-03-10 13:45 | disposition home or self-care (01) ==
LOC: SC.PAINP 13:03
PROVIDERS: PCP Physician Assistant Medical; Visit Provider Student in an Organized Health Care Education/Training Program
DX: M51.36 Other intervertebral disc degeneration, lumbar region (principal)
CPT/HCPCS: 62370

== ENCOUNTER 2022-05-09 13:42 | Day surgery (SDC) | payer OTHER, SELFPAY ==
[2022-05-09 13:54] VITALS: BP 143/81; PULSE 73; RESP 20; TEMP 36.7; O2SAT 98; BMI 31.1
[2022-05-09 14:02] VITALS: BP 141/81; PULSE 76; RESP 18; O2SAT 98
--- NOTE | 2022-05-09 14:03 | HMH.PMPROC ---
- Procedure Date: 05/09/22 Time: 14:03 Anesthesiologist:: Florentino Yost CRNA Complications:: None Pre-procedure Diagnosis:: Degenerative disc disease lumbar spine multilevels. Lumbar radiculopathy symptoms. Postlaminectomy syndrome. Post-procedure Diagnosis:: Same Indications for Procedure:: Patient is a pleasant 46-year-old male that presents today for intrathecal pain pump refill and adjustment. We are currently managing the patient with Dilaudid 1 mg/mL at 0.15 mg/day. Patient also using PTC. He is requesting periodic flow regards to his PTC doses. He is forgetting to give himself the dose. Or, he does not have the device with him when he needs it. 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 He recently went on vacation and forgot his device for PTC doses. I think periodic flow would be appropriate for him. We will increase his constant flow to 0.24 mg/day. His periodic flow will be 0.02 mg. Procedure Details:: Details of the procedure were explained to the patient. The patient taken the procedure room placed in the sitting position. The area over the pump was cleansed using chlorhexidine as a cleansing solution. The pump was accessed with ease using a 25-gauge needle. 8 cc of solution was removed and discarded appropriately. The pump was then filled with 20 cc of Dilaudid 1 mg/mL. Patient tolerated procedure without difficulty. There are no complications. Plan and Disposition:: Patient was discharged without incident.
== END 2022-05-09 14:03 | disposition home or self-care (01) ==
LOC: SC.PAINP 13:43
PROVIDERS: PCP Physician Assistant Medical; Visit Provider Nurse Anesthetist, Certified Registered
DX: M51.16 Intervertebral disc disorders with radiculopathy, lumbar region (principal); M96.1 Postlaminectomy syndrome, not elsewhere classified
CPT/HCPCS: 62370

== ENCOUNTER 2022-07-18 11:55 | Day surgery (SDC) | payer OTHER, SELFPAY ==
[2022-07-18 12:12] VITALS: BP 142/86; PULSE 83; RESP 20; TEMP 36.7; O2SAT 99; BMI 31.8
[2022-07-18 12:55] VITALS: BP 137/78; PULSE 70; RESP 18; O2SAT 98
[2022-07-18 12:56] VITALS: PULSE 70; RESP 18; O2SAT 98
[2022-07-18 13:02] VITALS: BP 148/85; PULSE 72; RESP 20; O2SAT 99
--- NOTE | 2022-07-18 15:15 | EXP.PAIN.PRO ---
Procedure Date: 07/18/22 Time: 15:15 Anesthesiologist:: Grupo Barrow MD Complications:: None Pre-procedure Diagnosis:: Degenerative disc disease of lumbar spine with lumbar radiculopathy symptoms and postlaminectomy syndrome lumbar spine Post-procedure Diagnosis:: Same Indications for Procedure:: This patient is a pleasant 46-year-old white male who we are treating for low back pain with lumbar radiculopathy symptoms. He has an intrathecal Dilaudid pain pump in place. We will refill his pump today. He has having some increasing pain. We will increase his dose to 0.36 mg/day. We will increase his periodic boluses to 0.3 mg every 2 hours. He does have an antalgic gait. Motor strength of the lower extremities is 5/5. There is no gross sensory deficit. Rufino and drug screen are all appropriate. Procedure Details:: Informed consent was obtained and the risks and benefits of the procedure was explained to the patient. The patient was taken to the procedure room. The pump was interrogated. The area over the pump was prepped using ChloraPrep. The pump was accessed with a 22-gauge needle. Approximately 3.5 mL's of the intrathecal solution was withdrawn and discarded. The pump was then refilled with 20 mL's of intrathecal Dilaudid 1 mg/mL. The pump was interrogated and the infusion was increased to 0.36 mg/day by increasing periodic boluses to 0.3 mg every 2 hours. The patient tolerated the procedure well with no complication. Plan and Disposition:: We will follow-up with this patient at his next pump refill. We will increase his concentration to intrathecal Dilaudid 3 mg/mL at his next refill.
== END 2022-07-18 13:02 | disposition home or self-care (01) ==
LOC: SC.PAINP 11:56
PROVIDERS: Visit Provider Nurse Anesthetist, Certified Registered
DX: M51.16 Intervertebral disc disorders with radiculopathy, lumbar region (principal); M96.1 Postlaminectomy syndrome, not elsewhere classified
CPT/HCPCS: 62370

== ENCOUNTER 2022-08-29 13:28 | Day surgery (SDC) | payer OTHER, SELFPAY ==
[2022-08-29 13:38] VITALS: BP 152/98; PULSE 77; RESP 18; TEMP 36.3; O2SAT 98; BMI 33.9
[2022-08-29 14:06] VITALS: BP 147/84; PULSE 74; RESP 18; O2SAT 97
[2022-08-29 14:07] VITALS: BP 147/84; PULSE 74; RESP 18; O2SAT 97
[2022-08-29 14:27] VITALS: BP 136/88; PULSE 77; RESP 18; O2SAT 98
--- NOTE | 2022-08-29 16:02 | EXP.PAIN.PRO ---
Procedure Date: 08/29/22 Time: 16:02 Anesthesiologist:: Grupo Barrow MD Complications:: None Pre-procedure Diagnosis:: Degenerative disc disease of lumbar spine with lumbar radiculopathy symptoms Post-procedure Diagnosis:: Same Indications for Procedure:: This patient is a pleasant 46-year-old white male who we are treating for low back pain with lumbar radiculopathy symptoms. He does have an intrathecal Dilaudid pain pump in place. He is doing well with his dose of 0.36 mg/day. We are increasing his concentration today to extend his refill interval.Rufino and drug screen are all appropriate. He does have an antalgic gait. Motor strength of the lower extremities is 5/5. There is no gross sensory deficit. Procedure Details:: Informed consent was obtained and the risks and benefits of the procedure was explained to the patient. The patient was taken to the procedure room. The pump was interrogated. The area over the pump was prepped using ChloraPrep. The pump was accessed with a 22-gauge needle. Approximately 5 mL's of the intrathecal solution was withdrawn and discarded. The pump was then refilled with 20 mL's of intrathecal Dilaudid 2 mg/mL the pump was interrogated and the infusion was switched from periodic flow to a constant flow starting at 0.36 mg/day. The patient tolerated the procedure well with no complication. Plan and Disposition:: Since we changed him to a constant flow. We will follow-up with him in 2 weeks. We will reassess his symptoms at that time and make adjustments as needed
== END 2022-08-29 14:27 | disposition home or self-care (01) ==
LOC: SC.PAINP 13:29
PROVIDERS: PCP Physician Assistant Medical; Visit Provider Anesthesiology
DX: M51.16 Intervertebral disc disorders with radiculopathy, lumbar region (principal)
CPT/HCPCS: 62370

== ENCOUNTER → 2022-09-25 11:24 | Outpatient (POV) | payer OTHER, SELFPAY ==
--- NOTE | 2022-09-25 12:01 | EXP.PAIN.PRO ---
Procedure Date: 09/25/22 Time: 12:01 Anesthesiologist:: Michelle Rodriguez APRN Complications:: None Pre-procedure Diagnosis:: Degenerative disc disease of lumbar spine with lumbar radiculopathy symptoms Post-procedure Diagnosis:: Same Indications for Procedure:: Patient is a pleasant 46-year-old male who presents today for intrathecal pain pump reprogramming adjustment. The patient is being treated for degenerative disc disease of lumbar spine with lumbar radiculopathy symptoms. Patient is currently being managed with Dilaudid 2 mg/mL with a daily dose of 0.36 mg/day. Patient denies any side effects from this medication. Patient rates pain a 4 out of 10. He is requesting a small increase at today's visit. Patient states he has recently had some cardiac issues including episodes of chest tightness and arm pain that he was evaluated by habilitation training specialist. It was confirmed that his heart is not pumping efficiently and was started on a low-dose medication. Patient states they do believe he also has sleep apnea that could be causing additional symptoms. Patient is scheduled for a sleep study on the of this month for consult. Drug screen is appropriate. Rufino [id number] has been reviewed and is appropriate. Physical exam General: Alert and oriented x3, no acute distress, pleasant and cooperative Lungs: Respirations even and unlabored, symmetrical chest expansion Eyes: PERRL Musculoskeletal: Flexion and extension of lumbar [spine] somewhat guarded secondary to pain, [antalgic gait noted] Neurological: Speech clear, no gross sensory deficit ORT score updated with minimal to low risk of 0 Procedure Details:: Informed consent was obtained and the risk and benefits of the procedure were explained to the patient. Patient was taken to the procedure room where noninvasive monitoring was placed including noninvasive blood pressure cuff and pulse oximeter. Patient's pump was interrogated and was reprogrammed to Dilaudid 2 mg/mL with a daily dose of 0.384 mg/day on periodic flow. The patient tolerated the procedure well with no complications. Plan and Disposition:: Patient tolerated the procedure well with no complications. Patient was monitored in clinic for short period of time following this adjustment and discharged neurologically intact. We will see the patient back in the clinic at the next intrathecal refill. Patient has been instructed to contact the clinic with any concerns before the next appointment. Dr. Barrow has reviewed this note and agrees with this plan of care. This note was dictated using voice recognition software and make contain errors or omissions. -- It Is medically necessary for this patient to continue to have their intrathecal pump refilled at regular intervals. This patient had an intrathecal pain pump implanted after meeting criteria of chronic intractable pain for greater than 3 months and failing conservative treatments. Patient has committed and been compliant to the treatment plan and all planned follow up care. Since implantation of the intrathecal pain pump, the patient has had decreased pain and been more functional. Oral medications have been reduced including intake of oral opioids. Patient continues to do well with intrathecal therapy with decrease in pain symptoms and increase in functional status. Stopping intrathecal medications can lead to life threatening withdrawal, seizures, cardiac arrest, severe pain, and possible . Pumps that are not refilled at regular intervals can be damages and cause and need for replacement. We continually titrate dose and concentration to optimize pain relief and function. We are limited in concentration for certain drugs to safely deliver medications through the pump and stay within the recommendations from the Polyanalgesic Consensus Committee Guidelines. Depending on dose and concentration these pumps may need to be refilled sooner than 3 months as we titrate.
[2022-09-25 12:40] VITALS: BP 131/82; PULSE 58; RESP 18; O2SAT 98; BMI 34.8
== END | disposition home or self-care (01) ==
PROVIDERS: Visit Provider Nurse Practitioner Family
DX: M51.16 Intervertebral disc disorders with radiculopathy, lumbar region (principal)
CPT/HCPCS: 62368; 99213; G0463

== ENCOUNTER 2022-11-11 08:28 | Day surgery (SDC) | payer OTHER, SELFPAY ==
[2022-11-11 08:46] VITALS: BP 141/101; PULSE 113; RESP 18; TEMP 36.6; O2SAT 99; BMI 36.6
[2022-11-11 08:52] VITALS: BP 190/100; PULSE 99; RESP 18; O2SAT 97
[2022-11-11 08:54] VITALS: BP 190/100; PULSE 99; RESP 18; O2SAT 97
[2022-11-11 09:04] VITALS: BP 126/96; PULSE 88; RESP 18; O2SAT 98
--- NOTE | 2022-11-11 09:12 | EXP.PAIN.PRO ---
Procedure Date: 11/11/22 Time: 08:20 Anesthesiologist:: Florentino Yost CRNA Complications:: None Pre-procedure Diagnosis:: Degenerative disc disease lumbar spine multilevels. Lumbar radiculopathy. Postlaminectomy syndrome. Post-procedure Diagnosis:: Same. Indications for Procedure:: This patient is a very pleasant 46-year-old male who comes our clinic today for intrathecal pain pump interrogation and refill. Patient is currently being managed with Dilaudid 2 mg/mL on periodic flow at 0.384 mg/day. Patient is doing very well in terms of his overall pain with this setting. Patient is having sleep apnea test this week. Procedure Details:: Details of the procedure were explained to the patient. Patient taken to procedure room placed in the sitting position. The area over the pump was cleansed using chlorhexidine as a cleansing solution. The pump was accessed with ease using a inch and half 22-gauge needle. 6 mL of solution was withdrawn and discarded appropriately. The pump was then filled with 20 cc of Dilaudid 2 mg/mL. There will be no change in the rate. Plan and Disposition:: Patient was discharged without incident.
== END 2022-11-11 09:04 | disposition home or self-care (01) ==
PROVIDERS: PCP Physician Assistant Medical; Visit Provider Nurse Anesthetist, Certified Registered
DX: Z45.1 Encounter for adjustment and management of infusion pump (principal); M51.16 Intervertebral disc disorders with radiculopathy, lumbar region; M96.1 Postlaminectomy syndrome, not elsewhere classified
CPT/HCPCS: 95991

== ENCOUNTER 2023-01-27 09:03 | Day surgery (SDC) | payer OTHER, SELFPAY ==
[2023-01-27 09:26] VITALS: BP 150/94; PULSE 72; RESP 18; TEMP 36.7; O2SAT 98; BMI 35.2
[2023-01-27 09:39] VITALS: BP 184/92; PULSE 75; RESP 18; O2SAT 97
[2023-01-27 09:40] VITALS: BP 184/92; PULSE 75; RESP 18; O2SAT 97
[2023-01-27 09:55] VITALS: BP 122/75; PULSE 70; RESP 18; O2SAT 98
--- NOTE | 2023-01-27 10:13 | P.PCN_ITS ---
Procedure Date: 01/27/23 Time: 10:00 Anesthesiologist:: Florentino Yost CRNA Complications:: None Pre-procedure Diagnosis:: Degenerative disc disease lumbar spine multilevels. Lumbar radiculopathy. Lumbar postlaminectomy syndrome. Post-procedure Diagnosis:: Same. Indications for Procedure:: Patient is a very pleasant 46-year-old male comes our clinic today for intrathecal pain pump interrogation refill. He is currently being managed with Dilaudid 2 mg/mL on periodic flow at 0.384 mg/day. Patient doing very well on his current settings. Patient reports he is recently started CPAP machine at night and is feeling much better. Procedure Details:: Details of procedure explained to the patient. The patient taken to procedure room placed in sitting position. The area of the pump was cleansed using chlorhexidine as a cleansing solution. The pump was interrogated. The pump was accessed with ease using a 22-gauge inch and half needle. 10.2 mL of solution was withdrawn and discarded appropriately. The pump was then filled with D ilaudid 2 mg/mL 20 cc. The pump will continue periodic flow 0.384 mg/day. Plan and Disposition:: Patient was discharged without incident.
== END 2023-01-27 09:55 | disposition home or self-care (01) ==
LOC: SC.PAINP 09:04
PROVIDERS: PCP Physician Assistant Medical; Visit Provider Nurse Anesthetist, Certified Registered
DX: Z45.1 Encounter for adjustment and management of infusion pump (principal); M51.16 Intervertebral disc disorders with radiculopathy, lumbar region; M96.1 Postlaminectomy syndrome, not elsewhere classified
CPT/HCPCS: 95991

== ENCOUNTER 2023-04-14 08:33 | Day surgery (SDC) | payer OTHER, SELFPAY ==
[2023-04-14 08:40] VITALS: BP 124/78; PULSE 57; RESP 18; TEMP 36.2; O2SAT 98; BMI 34.2
[2023-04-14 09:11] VITALS: BP 152/100; PULSE 62; RESP 20; O2SAT 99
--- NOTE | 2023-04-14 09:25 | EXP.PAIN.PRO ---
Procedure Date: 04/14/23 Time: 09:15 Anesthesiologist:: Florentino Yost CRNA Complications:: None Pre-procedure Diagnosis:: Degenerative disc lumbar spine multilevels. Lumbar radiculopathy. Lumbar postlaminectomy syndrome. Post-procedure Diagnosis:: Same. Indications for Procedure:: Patient is a very pleasant 46-year-old male that comes our clinic today for intrathecal pain pump interrogation refill. He is currently being managed with Dilaudid 2 mg/mL on periodic flow at 0.384 mg a day. Patient doing very well with his current settings. He is not reporting any side effects or complications with his current management. He rates his pain 2/10 Procedure Details:: Details of the procedure explained to the patient. The patient taken the procedure room placed in the sitting position. The area of the pump was cleansed using chlorhexidine as a cleansing solution. The pump was interrogated. The pump was accessed with ease using a 22-gauge inch and a half needle. 6.5 mL of solution was withdrawn and discarded appropriately. The pump was then filled with 20 cc of hydromorphone 2 mg/mL. The rate will stay the same 0.384 mg/day on periodic flow. Plan and Disposition:: Patient was discharged without incident.
[2023-04-14 09:40] VITALS: BP 133/77; PULSE 64; RESP 18; O2SAT 99
[2023-04-14 14:39] LABS: Amphetamine/Metha Screen,Urine Negative ng/ml (<1000)
[2023-04-14 14:40] LABS: Barbiturates Screen,Urine Negative ng/ml (<200)
[2023-04-14 14:42] LABS: Benzodiazepines Screen,Urine Negative ng/ml (<200); Cannabinoid Screen,Urine Negative ng/ml (<50)
[2023-04-14 14:43] LABS: Cocaine Screen,Urine Negative ng/ml (<300); Methadone Screen,Urine Negative ng/ml (<300)
[2023-04-14 14:44] LABS: Opiate Screen,Urine Negative ng/ml (<300)
[2023-04-14 14:45] LABS: Phencyclidine Screen,Urine Negative ng/ml (<25)
[2023-04-21 12:06] LABS: Opiates Negative (Cutoff=100)
== END 2023-04-14 09:40 | disposition home or self-care (01) ==
PROVIDERS: Nurse Practitioner Family; Visit Provider Nurse Anesthetist, Certified Registered
DX: M51.16 Intervertebral disc disorders with radiculopathy, lumbar region (principal); M96.1 Postlaminectomy syndrome, not elsewhere classified
CPT/HCPCS: 80305; 80361; 80365; 95991; G0480

== ENCOUNTER 2023-07-07 12:40 | Day surgery (SDC) | payer OTHER, SELFPAY ==
[2023-07-07 12:53] VITALS: BP 135/79; BP 137/86; PULSE 63; PULSE 75; RESP 20; TEMP 36.6; O2SAT 97; BMI 35.5
--- NOTE | 2023-07-07 13:23 | EXP.PAIN.PRO ---
Procedure Date: 07/07/23 Time: 13:15 Anesthesiologist:: Florentino Yost CRNA Complications:: None Pre-procedure Diagnosis:: Degenerative disc lumbar spine multilevels. Lumbar radiculopathy. Lumbar postlaminectomy syndrome Post-procedure Diagnosis:: Same. Indications for Procedure:: Patient is a very pleasant 47-year-old male that comes our clinic today for intrathecal pain pump interrogation and refill. Patient currently being managed with periodic flow Dilaudid 2 mg/mL at 0.384 mg/day. Overall, patient doing very well. However, patient reporting some increased pain with activity especially towards time for refill. We discussed in detail increasing the pump slightly. He wishes to proceed. He rates his pain today 2/10. Procedure Details:: Details of the procedure explained to the patient. Patient taken to procedure room placed in sitting position. The area over the pump was cleansed using chlorhexidine as a cleansing solution. The pump was interrogated. The pump was accessed with ease using a 22-gauge inch and half needle. 6 mL of solution was withdrawn and discarded appropriately. The pump was then filled incrementally with 20 cc of a solution containing Dilaudid 2 mg/mL. Pump rate will be increased by 5% today. His new rate will be 0.4032 mg/day. Patient tolerated procedure without difficulty. There are no complications. Plan and Disposition:: Patient was discharged without incident.
[2023-07-07 13:35] VITALS: BP 153/86; PULSE 76; RESP 18; O2SAT 98
[2023-07-07 13:37] VITALS: BP 153/86; PULSE 76; RESP 18; O2SAT 98
== END 2023-07-07 13:25 | disposition home or self-care (01) ==
PROVIDERS: PCP Nurse Anesthetist, Certified Registered; Visit Provider Nurse Anesthetist, Certified Registered
DX: M51.16 Intervertebral disc disorders with radiculopathy, lumbar region (principal); M96.1 Postlaminectomy syndrome, not elsewhere classified; Z97.8 Presence of other specified devices
CPT/HCPCS: 95991

== ENCOUNTER 2023-09-18 10:21 | Day surgery (SDC) | payer OTHER, SELFPAY ==
[2023-09-18 10:30] VITALS: BP 149/86; BP 164/95; PULSE 81; PULSE 88; PULSE 90; RESP 18; TEMP 36.2; O2SAT 97; O2SAT 98; O2SAT 99; BMI 37.6
[2023-09-18 10:42] VITALS: BP 141/78; PULSE 79; RESP 18; O2SAT 97
--- NOTE | 2023-09-18 10:47 | EXP.PAIN.PRO ---
Procedure Date: 09/18/23 Time: 10:40 Anesthesiologist:: Florentino Yost CRNA Complications:: None Pre-procedure Diagnosis:: Degenerative disc lumbar spine multilevels. Lumbar radiculopathy. Lumbar postlaminectomy syndrome. Lumbar spondylosis. Post-procedure Diagnosis:: Same. Indications for Procedure:: Patient is a very pleasant 47-year-old male comes our clinic today for intrathecal pain pump interrogation refill. He is currently being managed with Dilaudid 2 mg/mL at a rate of 0.4032 mg/day. He is doing very well with his current settings. He is not requesting any changes. Procedure Details:: Details of the procedure explained the patient. Patient taken procedure room placed in the sitting position. The area of the pump is cleansed using chlorhexidine's cleansing solution. The pump was interrogated. The pump was accessed with ease using a 22-gauge inch and half needle. 6 mL of solution was withdrawn and discarded appropriately. The pump was then filled with 20 cc of solution containing Dilaudid 2 mg/mL. Patient tolerated procedure without difficulty. There are no complications. Plan and Disposition:: Patient was discharged without incident.
== END 2023-09-18 10:42 | disposition home or self-care (01) ==
PROVIDERS: Visit Provider Nurse Anesthetist, Certified Registered
DX: M51.16 Intervertebral disc disorders with radiculopathy, lumbar region (principal); M96.1 Postlaminectomy syndrome, not elsewhere classified; M47.26 Other spondylosis with radiculopathy, lumbar region; Z97.8 Presence of other specified devices; Z45.1 Encounter for adjustment and management of infusion pump
CPT/HCPCS: 95991

== ENCOUNTER 2023-12-01 09:30 | Day surgery (SDC) | payer OTHER, SELFPAY ==
[2023-12-01 09:41] VITALS: BP 155/95; PULSE 64; RESP 18; TEMP 36.6; O2SAT 96; BMI 34.8
--- NOTE | 2023-12-01 09:53 | EXP.PAIN.PRO ---
Procedure Date: 12/01/23 Time: 09:40 Anesthesiologist:: Florentino Yost CRNA Complications:: None Pre-procedure Diagnosis:: Degenerative disc lumbar spine multilevels. Lumbar radiculopathy. Lumbar postlaminectomy syndrome. Lumbar spondylosis. Post-procedure Diagnosis:: Same. Indications for Procedure:: Patient is a very pleasant 47-year-old male comes our clinic today for intrathecal pain pump interrogation refill. He is currently being managed with Dilaudid 2 mg/mL rate is 0.4032 mg/day. Patient requesting slight increase due to some low back pain he describes as intermittent with activity. Patient continues to report sweating intermittently however, much better since changing from morphine to Dilaudid. Will increase in by 3% today. Procedure Details:: Details of the procedure explained to the patient. The patient taken procedure and placed in sitting position. The area of the pump is cleansed using chlorhexidine's cleansing solution. The pump was interrogated. The pump was accessed with ease using a 22-gauge inch and half needle. 5 mL of solution was withdrawn and discarded appropriately. The pump was then filled with 20 cc of solution containing Dilaudid 2 mg/mL. The rate will increase to 0.4200 mg/day. Patient tolerated procedure without difficulty. There are no complications. Plan and Disposition:: Patient was discharged without incident.
[2023-12-01 09:58] VITALS: BP 148/85; PULSE 60; RESP 18; O2SAT 98
[2023-12-01 10:04] VITALS: BP 174/100; PULSE 71; RESP 18; O2SAT 97
[2023-12-01 10:05] VITALS: BP 174/100; PULSE 71; RESP 18; O2SAT 97
[2023-12-01 12:55] LABS: Amphetamine/Metha Screen,Urine Negative ng/ml (<1000)
[2023-12-01 12:56] LABS: Barbiturates Screen,Urine Negative ng/ml (<200); Benzodiazepines Screen,Urine Negative ng/ml (<200)
[2023-12-01 12:57] LABS: Cannabinoid Screen,Urine Negative ng/ml (<50)
[2023-12-01 12:58] LABS: Cocaine Screen,Urine Negative ng/ml (<300); Methadone Screen,Urine Negative ng/ml (<300)
[2023-12-01 12:59] LABS: Opiate Screen,Urine Negative ng/ml (<300); Phencyclidine Screen,Urine Negative ng/ml (<25)
[2023-12-06 12:17] LABS: Codeine Negative (Cutoff=100); Hydrocodone Negative (Cutoff=100); Hydromorphone Positive (.); Morphine Negative (Cutoff=100); Opiates Positive (.)
== END 2023-12-01 09:58 | disposition home or self-care (01) ==
PROVIDERS: Anesthesiology; Visit Provider Nurse Anesthetist, Certified Registered
DX: M51.16 Intervertebral disc disorders with radiculopathy, lumbar region (principal); M47.26 Other spondylosis with radiculopathy, lumbar region; M96.1 Postlaminectomy syndrome, not elsewhere classified; Z97.8 Presence of other specified devices; Z45.1 Encounter for adjustment and management of infusion pump
CPT/HCPCS: 80307; 80361; 80365; 95991; G0480

== ENCOUNTER 2024-02-09 07:57 | Day surgery (SDC) | payer OTHER, BC, SELFPAY ==
[2024-02-09 08:23] VITALS: BP 128/71; PULSE 76; RESP 16; TEMP 36.7; O2SAT 98; BMI 34.2
[2024-02-09 08:54] VITALS: BP 118/79; PULSE 74; RESP 16; O2SAT 97
[2024-02-09 08:55] VITALS: BP 118/79; PULSE 76; RESP 16; O2SAT 96
[2024-02-09 09:00] VITALS: BP 140/71; PULSE 63; RESP 18; O2SAT 98
--- NOTE | 2024-02-09 09:02 | EXP.PAIN.PRO ---
Procedure Date: 02/09/24 Time: 08:40 Anesthesiologist:: Florentino Yost CRNA Complications:: None Pre-procedure Diagnosis:: Degenerative disc lumbar spine. Lumbar radiculopathy. Lumbar postlaminectomy syndrome. Post-procedure Diagnosis:: Same. Indications for Procedure:: Patient is a very pleasant 48-year-old male comes our clinic today for intrathecal pain pump interrogation refill. Patient currently being managed with Dilaudid 2 mg/mL at a rate of 0.42 mg/day. Patient doing very well with his current settings. Is not reporting side effects or complications. He is not requesting any changes. Patient is awake alert [place] x 3. In no acute distress. Flexion-extension lumbar spine normal. Deep tendon reflexes upper and lower extremities normal. Motor strength upper and lower extremities normal. There is no gross sensory deficit. Gait is normal. Procedure Details:: Details of the procedure explained to the patient. The patient taken to procedure room placed in sitting position. The area of the pump is cleansed using chlorhexidine as a cleansing solution. The pump was interrogated. The pump was accessed with ease using a 22-gauge inch and half needle. 6 mL of solution was withdrawn discarded appropriate. The pump was then filled with 20 cc of solution containing Dilaudid 2 mg/mL. The rate will continue at 0.42 mg/day. Patient tolerated procedure without difficulty. There are no complications. Plan and Disposition:: Patient was discharged without incident.
== END 2024-02-09 09:02 | disposition home or self-care (01) ==
PROVIDERS: PCP Physician Assistant Medical; Visit Provider Nurse Anesthetist, Certified Registered
DX: M51.16 Intervertebral disc disorders with radiculopathy, lumbar region (principal); M96.1 Postlaminectomy syndrome, not elsewhere classified; Z97.8 Presence of other specified devices; Z45.1 Encounter for adjustment and management of infusion pump
CPT/HCPCS: 95991

== ENCOUNTER 2024-04-26 13:47 | Day surgery (SDC) | payer OTHER, SELFPAY ==
[2024-04-26 14:10] VITALS: BP 133/86; PULSE 64; RESP 16; TEMP 37; O2SAT 100; BMI 34.2
[2024-04-26 14:15] VITALS: BP 138/87; PULSE 64; RESP 18; O2SAT 97
[2024-04-26 14:16] VITALS: BP 138/87; PULSE 64; RESP 18; O2SAT 98
--- NOTE | 2024-04-26 14:19 | P.PCN_ITS ---
Procedure Date: 04/26/24 Time: 14:15 Anesthesiologist:: Florentino Yost CRNA Complications:: None Pre-procedure Diagnosis:: Tender to distal my spine muscles. Lumbar radiculopathy. Lumbar p ostlaminectomy syndrome. Post-procedure Diagnosis:: Same. Indications for Procedure:: Patient is a pleasant 48-year-old male who comes to clinic today for intrathecal pain pump interrogation and refill. He is currently being managed with Dilaudid 2 mg/mL at a rate of 0.4200 mg/day. He is doing very well with current settings. Is not reporting any side effects or complications. He is not requesting any changes. Patient is awake alert oriented x 3. No acute distress. Flexion-extension lumbar spine normal. Deep tendon reflexes upper and lower extremities normal. There is no gross sensory deficit. Gait is normal. Procedure Details:: Details of the procedure explained to the patient. The patient taken the procedure and patient in sitting position. The area over the pump was cleaned using chlorhexidine as a cleansing solution. The pump was interrogated. The pump was accessed with ease using a 22-gauge inch and half needle. 4 mL of solution was withdrawn discarded appropriately. The pump was then filled with 20 cc of a solution containing hydromorphone 2 mg/mL. The pump rate will remain the same. Patient tolerated procedure without difficulty. There are no complications. Plan and Disposition:: Patient was discharged without incident.
[2024-04-26 14:27] VITALS: BP 133/79; PULSE 60; RESP 16; O2SAT 100
== END 2024-04-26 14:28 | disposition home or self-care (01) ==
PROVIDERS: PCP Physician Assistant Medical; Visit Provider Nurse Anesthetist, Certified Registered
DX: M79.18 Myalgia, other site (principal); M54.16 Radiculopathy, lumbar region; M96.1 Postlaminectomy syndrome, not elsewhere classified
CPT/HCPCS: 95991

== ENCOUNTER 2024-07-05 09:33 | Day surgery (SDC) | payer OTHER, SELFPAY ==
[2024-07-05 09:55] VITALS: BP 125/75; PULSE 71; RESP 16; TEMP 37.1; O2SAT 97; BMI 34.8
[2024-07-05 10:18] VITALS: BP 119/71; PULSE 73; RESP 18; O2SAT 97
[2024-07-05 10:19] VITALS: BP 119/71; PULSE 70; RESP 18; O2SAT 97
[2024-07-05 10:28] VITALS: BP 127/71; PULSE 65; RESP 16; O2SAT 97
--- NOTE | 2024-07-05 10:36 | EXP.PAIN.PRO ---
Procedure Date: 07/05/24 Time: 10:15 Anesthesiologist:: Florentino Yost CRNA Complications:: None Pre-procedure Diagnosis:: Degenerative disc lumbar spine multilevels. Lumbar radiculopathy. Lumbar postlaminectomy syndrome. Post-procedure Diagnosis:: Same. Indications for Procedure:: Patient is a very pleasant 48-year-old male who comes our clinic today for intrathecal pain pump interrogation refill. He is currently managed with Dilaudid 2 mg/mL at 0.4200 mg/day. He is doing very well with his current settings. He is not requesting changes. He does not report any side effects or complications. Patient is awake alert [place] x 3. No acute distress. Flexion-extension lumbar spine somewhat guarded secondary to pain. Deep tendon reflexes upper lower extremities normal. Motor strength upper and lower extremities normal. There is no gross sensory deficit. Gait is normal. Procedure Details:: Details of the procedure explained to the patient. The patient taken procedure and placed in the sitting position. They over the pumps cleansed using chlorhexidine as a cleansing solution. The pump was interrogated. The pump was accessed with ease using a 22-gauge inch and half needle. 5 mL of solution was withdrawn discarded appropriate. The pump was then filled with 20 cc of solution containing Dilaudid 2 mg/mL. The rate will continue at 0.4200 mg/day. Patient tolerated procedure without difficulty. There are no complications. Plan and Disposition:: Patient was discharged without incident.
== END 2024-07-05 10:28 | disposition home or self-care (01) ==
PROVIDERS: Visit Provider Nurse Anesthetist, Certified Registered
DX: M51.16 Intervertebral disc disorders with radiculopathy, lumbar region (principal); M96.1 Postlaminectomy syndrome, not elsewhere classified
CPT/HCPCS: 95991

== ENCOUNTER 2024-09-09 11:33 | Day surgery (SDC) | payer OTHER, SELFPAY ==
[2024-09-09 12:16] VITALS: BP 146/91; PULSE 76; RESP 16; TEMP 36.6; O2SAT 100; BMI 35.5
--- NOTE | 2024-09-09 12:22 | EXP.PAIN.PRO ---
Procedure Date: 09/09/24 Time: 12:46 Anesthesiologist:: Michelle Rodriguez APRN Complications:: None Pre-procedure Diagnosis:: Degenerative disc disease of lumbar spine with lumbar radiculopathy symptoms lumbar postlaminectomy Post-procedure Diagnosis:: Same Indications for Procedure:: Patient is a pleasant 48-year-old male who presents today for intrathecal refill and reprogram. Today he rates his pain at 5 out of 10. Patient did recently just have a carpal and cubital tunnel release on Thursday along the right side. He states overall he has done pretty good with this. He states previously before that he had just had the same thing done on the left side.Patient did previously have a short-term dose of Lortab from his orthopedic doctor back in July. He is Rufino has been reviewed and is appropriate. Physical Exam: General: Alert and oriented x3, no acute distress, pleasant and cooperative Lungs: Respirations even and unlabored, symmetrical chest expansion Eyes: PERRL Musculoskeletal: Flexion and extension of lumbar [spine] somewhat guarded secondary to pain, [antalgic gait noted] Neurological: Speech clear, no gross sensory deficit Procedure Details:: Informed consent was obtained and the risk and benefits of the procedure were explained to the patient. The patient had noninvasive monitoring placed including noninvasive blood pressure cuff and pulse oximeter. Patient's pump was interrogated. The area over the pump was cleansed with chlorhexidine as a cleansing solution. In sterile fashion the pump was accessed with a 22-gauge needle. Approximately 7 mls of the pump solution was removed and discarded appropriately. The pump was then refilled with 20 mL's of Dilaudid 2 mg/mL. The needle was withdrawn and a bandage was placed over the puncture site. The infusion rate was reprogrammed and Dilaudid 0.42 mg/day. The patient tolerated well with no complication. Plan and Disposition:: Patient tolerated his intrathecal refill and reprogram with no complications and was discharged neurologically intact. I will order him a compounded cream. Patient will return to clinic for his next intrathecal refill. We will see the patient back in the clinic at the next intrathecal refill. Patient has been instructed to contact the clinic with any concerns before the next appointment. Dr. Barrow has reviewed this note and agrees with this plan of care. This note was dictated using voice recognition software and make contain errors or omissions. -- It Is medically necessary for this patient to continue to have their intrathecal pump refilled at regular intervals. This patient had an intrathecal pain pump implanted after meeting criteria of chronic intractable pain for greater than 3 months and failing conservative treatments. Patient has committed and been compliant to the treatment plan and all planned follow up care. Since implantation of the intrathecal pain pump, the patient has had decreased pain and been more functional. Oral medications have been reduced including intake of oral opioids. Patient continues to do well with intrathecal therapy with decrease in pain symptoms and increase in functional status. Stopping intrathecal medications can lead to life threatening withdrawal, seizures, cardiac arrest, severe pain, and possible . Pumps that are not refilled at regular intervals can be damages and cause and need for replacement. We continually titrate dose and concentration to optimize pain relief and function. We are limited in concentration for certain drugs to safely deliver medications through the pump and stay within the recommendations from the Polyanalgesic Consensus Committee Guidelines. Depending on dose and concentration these pumps may need to be refilled sooner than 3 months as we titrate. A UDS is needed to verify patient's compliance with our office pain contract. This is ordered based off specific treatments related to chronic pain with the potential to abuse certain medications.
[2024-09-09 12:39] VITALS: BP 151/111; PULSE 75; RESP 16; O2SAT 95
[2024-09-09 12:45] VITALS: BP 151/111; PULSE 75; RESP 18; O2SAT 95
[2024-09-09 12:49] VITALS: BP 119/69; PULSE 95; RESP 16; O2SAT 95
== END 2024-09-09 12:49 | disposition home or self-care (01) ==
PROVIDERS: Visit Provider Nurse Practitioner Family
DX: M51.16 Intervertebral disc disorders with radiculopathy, lumbar region (principal); M96.1 Postlaminectomy syndrome, not elsewhere classified
CPT/HCPCS: 62370

== ENCOUNTER 2024-11-11 12:52 | Day surgery (SDC) | payer OTHER, SELFPAY ==
--- NOTE | 2024-11-11 12:56 | EXP.PAIN.PRO ---
Procedure Date: 11/11/24 Time: 13:35 Anesthesiologist:: Michelle Rodriguez APRN Complications:: None Pre-procedure Diagnosis:: Generative disc disease of lumbar spine with lumbar radiculopathy symptoms, lumbar postlaminectomy syndrome Post-procedure Diagnosis:: Same Indications for Procedure:: Patient is a pleasant 48-year-old male who presents today for intrathecal refill and reprogram. Today he rates his pain a 5 out of 10. Patient denies any new injury or falls since our last visit. He does state that he ended up having surgery on the opposite arm and is doing well for it. He does state that he thinks he might have to have surgery again on the left arm due to the knot that is appeared in and around his elbow that they are thinking is a possible nerve involvement. Patient has talked about having to get an updated MRI. Patient is currently managed with Dilaudid 2 mg/mL with a daily dose at 0.42 mg/day. He denies any side effects however does make mention that he does continue to have sweating on a regular basis. He states that they had this going on for years. He states in the past when he was previously on morphine that even then he had it and it seemed unrelated when they go up and down on the pump. Patient does have a history of having his parathyroid removed and does state that he is on testosterone therapy that he gets updated labs every 3 months. Patient is unsure whether or not if he has had any updated thyroid levels. His [place] has been reviewed and is appropriate. Physical Exam: General: Alert and oriented x3, no acute distress, pleasant and cooperative Lungs: Respirations even and unlabored, symmetrical chest expansion Eyes: PERRL Musculoskeletal: Flexion and extension of lumbar [spine] somewhat guarded secondary to pain, [antalgic gait noted] Neurological: Speech clear, no gross sensory deficit Procedure Details:: Informed consent was obtained and the risk and benefits of the procedure were explained to the patient. The patient had noninvasive monitoring placed including noninvasive blood pressure cuff and pulse oximeter. Patient's pump was interrogated. The area over the pump was cleansed with chlorhexidine as a cleansing solution. In sterile fashion the pump was accessed with a 22-gauge needle. Approximately 7.6 mls of the pump solution was removed and discarded appropriately. The pump was then refilled with 20 mL's of Dilaudid 2 mg/mL. The needle was withdrawn and a bandage was placed over the puncture site. The infusion rate was reprogrammed and increased 10%. The patient tolerated well with no complication. Plan and Disposition:: Patient tolerated the procedure well with no complications and was discharged neurologically intact. I did discuss with the patient to let us know if any of his sweating symptoms did worsen with a 10% increase and that we can decrease it back down to. Patient was also counseled to let us know when he does get his MRI scheduled that we will plan on emptying the pump to allow for him to go for the imaging and come back to us to refill it. Patient agrees with this plan of care. Patient will return to clinic on or before their next intrathecal refill date. We will see the patient back in the clinic at the next intrathecal refill. Patient has been instructed to contact the clinic with any concerns before the next appointment. Dr. Barrow has reviewed this note and agrees with this plan of care. This note was dictated using voice recognition software and make contain errors or omissions. -- It Is medically necessary for this patient to continue to have their intrathecal pump refilled at regular intervals. This patient had an intrathecal pain pump implanted after meeting criteria of chronic intractable pain for greater than 3 months and failing conservative treatments. Patient has committed and been compliant to the treatment plan and all planned follow up care. Since implantation of the intrathecal pain pump, the patient has had decreased pain and been more functional. Oral medications have been reduced including intake of oral opioids. Patient continues to do well with intrathecal therapy with decrease in pain symptoms and increase in functional status. Stopping intrathecal medications can lead to life threatening withdrawal, seizures, cardiac arrest, severe pain, and possible . Pumps that are not refilled at regular intervals can be damages and cause and need for replacement. We continually titrate dose and concentration to optimize pain relief and function. We are limited in concentration for certain drugs to safely deliver medications through the pump and stay within the recommendations from the Polyanalgesic Consensus Committee Guidelines. Depending on dose and concentration these pumps may need to be refilled sooner than 3 months as we titrate. A UDS is needed to verify patient's compliance with our office pain contract. This is ordered based off specific treatments related to chronic pain with the potential to abuse certain medications.
[2024-11-11 13:16] VITALS: BP 149/105; PULSE 91; RESP 16; TEMP 36.6; O2SAT 100; BMI 36.9
[2024-11-11 13:51] VITALS: BP 158/108; PULSE 77; RESP 16; O2SAT 98
[2024-11-11 14:12] VITALS: BP 155/104; PULSE 84; RESP 18; O2SAT 96
[2024-11-11 14:14] VITALS: BP 155/104; PULSE 84; RESP 18; O2SAT 99
== END 2024-11-11 13:51 | disposition home or self-care (01) ==
PROVIDERS: Visit Provider Nurse Practitioner Family
DX: M51.16 Intervertebral disc disorders with radiculopathy, lumbar region (principal); M96.1 Postlaminectomy syndrome, not elsewhere classified
CPT/HCPCS: 62370

== ENCOUNTER 2025-01-13 13:06 | Day surgery (SDC) | payer OTHER, BC, SELFPAY ==
--- NOTE | 2025-01-13 13:09 | EXP.HP ---
History of Present Illness *Admission Date: 01/13/25 *Reason for visit:: Intrathecal refill; DDD *History of present illness: Degenerative disc disease [facility] Disclaimer: The information contained in this section may have been updated after the patient was seen, as this information can be updated by other users. 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 current occupational exposures/hazards: No caffeine: Yes Have you lived/traveled outside [place] in past 30 days?: No Contact w/someone who lives/traveled outside [place] past 30 days?: No Exposure to someone with infectious disease in past 14 days?: No Do you have a fever (greater than 100.4 F or 38 C)?: No Have you tested positive for COVID-19: No Exposed to someone with COVID-19 in past 14 days?: No Do you have a sore throat?: No Do you have a cough?: No Do you have any weakness?: No Do you have any diarrhea?: No Are you experiencing any unusual bleeding?: No Do you have any muscle aches/pain?: No Do you have any abdominal pain?: No Are you experiencing loss of taste or smell?: No Other Medical History Have you received the Flu Vaccine for this season: No Have you received the Pneumonia Vaccine: No Review of Systems Review of Systems Review of systems:: pertinent systems reviewed and negative unless documented below Review of systems (narrative): Review of Systems: General: No recent weight changes, no fever, no sleep disturbances Respiratory: No cough, no shortness of air, no recurring pulmonary infections Cardiovascular/peripheral vascular: No chest pain, no palpitations, no edema, no shortness of breath Gastrointestinal: No new onset incontinence, normal bowel movements reported Genitourinary: No new onset incontinence Musculoskeletal: Chronic back pain Psychiatric: [Normal mood/affect] Neurological: [Denies weakness in extremities], [denies balance issues] Meds Home Medications and Allergies Home Medications ?Medication ?Instructions ?Recorded ?Confirmed ?Type ibuprofen 800 mg tablet (IBU) 800 mg PO Q4-6H Pain 11/08/18 11/11/24 History pantoprazole 40 mg tablet,delayed 40 mg PO DAILY Heartburn 11/08/18 11/11/24 History release aspirin 81 mg tablet,delayed 81 mg PO DAILY . 04/14/23 11/11/24 History release metoprolol succinate 25 mg 40 mg PO DAILY Hypertension 04/14/23 11/11/24 History tablet,extended release 24 hr olmesartan 20 mg tablet 20 mg PO DAILY . 04/14/23 11/11/24 History testosterone cypionate 200 mg/mL 200 mg IM WEEKLY . 04/14/23 11/11/24 History intramuscular oil New Prescriptions to Start Prescriptions: Allergies Allergy/AdvReac Type Severity Reaction Status Date / Time shellfish derived Allergy Intermediate Swelling Verified 11/11/24 13:16 of Lip/Tongue/Throat codeine AdvReac Intermediate Migraine Verified 11/11/24 13:16 Exam Constitutional Constitutional: no acute distress *Routine HEENT Exam Head: Present normocephalic and atraumatic Eye: Present PERRL ENT: Present mucous membranes moist *Routine Neck Exam Neck: Present supple *Routine Respiratory Exam Respiratory: Present CTA bilaterally *Routine Cardiovascular Exam Cardiovascular: Present RRR *Routine Abdominal Exam Abdominal: Present soft *Routine Rectal Exam Rectal:: deferred *Routine Genitalia Exam Genitalia:: normal male Routine Back/Spine/Pelvis Exam Back/Spine: Present pain with flexion *Routine Skin Exam Skin: Present intact *Routine Neurological Exam Neurological: Present alert and oriented X3 Routine Psychiatric Exam Psychiatric: Present normal affect Assessment and Plan *Assessment and plan (1) Postlaminectomy syndrome: Status: Chronic Category: Medical Code(s): M96.1 - Postlaminectomy syndrome, not elsewhere classified (2) Failed back syndrome: Status: Chronic Category: Medical Code(s): M96.1 - Postlaminectomy syndrome, not elsewhere classified Plan Patient has been instructed to contact the clinic with any concerns before the next appointment. Dr. Barrow has reviewed this note and agrees with this plan of care. This note was dictated using voice recognition software and make contain errors or omissions. All injections are used with Lidocaine, Bupivacaine and dexamethasone. Occasionally urine drug screen is needed to verify patient's compliance with our office pain contract. This is ordered based off specific treatments related to chronic pain with the potential to abuse certain medications.
--- NOTE | 2025-01-13 13:11 | EXP.PAIN.PRO ---
Procedure Date: 01/13/25 Time: 13:40 Anesthesiologist:: Michelle Rodriguez APRN Complications:: None Pre-procedure Diagnosis:: Degenerative disc disease of lumbar spine, lumbar postlaminectomy syndrome Post-procedure Diagnosis:: Same Indications for Procedure:: Patient is a pleasant 49-year-old male who presents today for intrathecal refill and reprogram. Today he rates his pain a 4 out of 10. He denies any new falls or injuries. He states overall he is doing well with his pump however he does still have the issue of constant sweating. He states at our last visit where we did increase the pump that he did not notice any additional worsening of this. Patient states he did just have labs from his primary care they are in [place]. Patient is unsure what all they check for his testosterone therapy. Patient is currently managed with Dilaudid 2 mg/mL with a daily dose of Dilaudid 0.462 mg/day. He denies any side effects his Rufino has been reviewed and is appropriate. Physical Exam: General: Alert and oriented x3, no acute distress, pleasant and cooperative Lungs: Respirations even and unlabored, symmetrical chest expansion Eyes: PERRL Musculoskeletal: Flexion and extension of lumbar [spine] somewhat guarded secondary to pain, [antalgic gait noted] Neurological: Speech clear, no gross sensory deficit Procedure Details:: Informed consent was obtained and the risk and benefits of the procedure were explained to the patient. The patient had noninvasive monitoring placed including noninvasive blood pressure cuff and pulse oximeter. Patient's pump was interrogated. The area over the pump was cleansed with chlorhexidine as a cleansing solution. In sterile fashion the pump was accessed with a 22-gauge needle. Approximately 6.1 mls of the pump solution was removed and discarded appropriately. The pump was then refilled with 20 mL's of Dilaudid 2 mg/mL. The needle was withdrawn and a bandage was placed over the puncture site. The infusion rate was reprogrammed and continued at its current dosage. The patient tolerated well with no complication. Plan and Disposition:: Patient tolerated the procedure well with no complications and was discharged neurologically intact. I did discuss with the patient that I can add and bupivacaine into his pump and then we can see about going down on the Dilaudid dosage and see if this makes any additional change to his overall sweating. Patient is agreeable to this plan of care. We will order bupivacaine 5 mg/mL to be added to his pump with a starting dose of 2.5 mg/day. I will also see about reaching out to his primary care Racquel García and get a copy of his last lab results to see whether or not you have thyroid levels were done with these labs. Patient agrees with this plan of care. Patient will return to clinic on or before their next intrathecal refill date. We will see the patient back in the clinic at the next intrathecal refill. Patient has been instructed to contact the clinic with any concerns before the next appointment. Dr. Barrow has reviewed this note and agrees with this plan of care. This note was dictated using voice recognition software and make contain errors or omissions. -- It Is medically necessary for this patient to continue to have their intrathecal pump refilled at regular intervals. This patient had an intrathecal pain pump implanted after meeting criteria of chronic intractable pain for greater than 3 months and failing conservative treatments. Patient has committed and been compliant to the treatment plan and all planned follow up care. Since implantation of the intrathecal pain pump, the patient has had decreased pain and been more functional. Oral medications have been reduced including intake of oral opioids. Patient continues to do well with intrathecal therapy with decrease in pain symptoms and increase in functional status. Stopping intrathecal medications can lead to life threatening withdrawal, seizures, cardiac arrest, severe pain, and possible . Pumps that are not refilled at regular intervals can be damages and cause and need for replacement. We continually titrate dose and concentration to optimize pain relief and function. We are limited in concentration for certain drugs to safely deliver medications through the pump and stay within the recommendations from the Polyanalges[employer] Consensus Committee Guidelines. Depending on dose and concentration these pumps may need to be refilled sooner than 3 months as we titrate. A UDS is needed to verify patient's compliance with our office pain contract. This is ordered based off specific treatments related to chronic pain with the potential to abuse certain medications.
[2025-01-13 13:20] VITALS: BP 132/87; PULSE 69; RESP 16; TEMP 36.8; O2SAT 98; BMI 36.2
[2025-01-13 13:24] VITALS: BP 172/70; PULSE 68; RESP 18; O2SAT 98
[2025-01-13 13:45] VITALS: BP 123/85; PULSE 63; RESP 16; O2SAT 98
== END 2025-01-13 13:45 | disposition home or self-care (01) ==
PROVIDERS: Visit Provider Nurse Practitioner Family
DX: M96.1 Postlaminectomy syndrome, not elsewhere classified (principal); M51.369 Other intervertebral disc degeneration, lumbar region without mention of lumbar back pain or lower extremity pain
CPT/HCPCS: 62370; 99221

== ENCOUNTER 2025-03-17 13:14 | Day surgery (SDC) | payer OTHER, BC, SELFPAY ==
--- NOTE | 2025-03-17 13:21 | EXP.PM.HP ---
History of Present Illness *Admission Date: 03/17/25 *Reason for visit:: Intrathecal refill; DDD *History of present illness: Same [facility] Disclaimer: The information contained in this section may have been updated after the patient was seen, as this information can be updated by other users. 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 current occupational exposures/hazards: No caffeine: Yes Have you lived/traveled outside [place] in past 30 days?: No Contact w/someone who lives/traveled outside [place] past 30 days?: No Exposure to someone with infectious disease in past 14 days?: No Do you have a fever (greater than 100.4 F or 38 C)?: No Have you tested positive for COVID-19?: No Exposed to someone with COVID-19 in past 14 days?: No Do you have a sore throat?: No Do you have a cough?: No Do you have any weakness?: No Do you have any diarrhea?: No Are you experiencing any unusual bleeding?: No Do you have any muscle aches/pain?: No Do you have any abdominal pain?: No Are you experiencing loss of taste or smell?: No Other Medical History Have you received the Flu Vaccine for this season: No Have you received the Pneumonia Vaccine: No Review of Systems Review of Systems Review of systems:: pertinent systems reviewed and negative unless documented below Review of systems (narrative): Review of Systems: General: No recent weight changes, no fever, no sleep disturbances Respiratory: No cough, no shortness of air, no recurring pulmonary infections Cardiovascular/peripheral vascular: No chest pain, no palpitations, no edema, no shortness of breath Gastrointestinal: No new onset incontinence, normal bowel movements reported Genitourinary: No new onset incontinence Musculoskeletal: Chronic back pain Psychiatric: [Normal mood/affect] Neurological: [Denies weakness in extremities], [denies balance issues] Meds Home Medications and Allergies Home Medications ?Medication ?Instructions ?Recorded ?Confirmed ?Type ibuprofen 800 mg tablet (IBU) 800 mg PO Q4-6H Pain 11/08/18 01/13/25 History pantoprazole 40 mg tablet,delayed 40 mg PO DAILY Heartburn 11/08/18 01/13/25 History release aspirin 81 mg tablet,delayed 81 mg PO DAILY . 04/14/23 01/13/25 History release metoprolol succinate 25 mg 40 mg PO DAILY Hypertension 04/14/23 01/13/25 History tablet,extended release 24 hr olmesartan 20 mg tablet 20 mg PO DAILY . 04/14/23 01/13/25 History testosterone cypionate 200 mg/mL 200 mg IM WEEKLY . 04/14/23 01/13/25 History intramuscular oil New Prescriptions to Start Prescriptions: Allergies Allergy/AdvReac Type Severity Reaction Status Date / Time shellfish derived Allergy Intermediate Swelling Verified 11/11/24 13:16 of Lip/Tongue/Throat codeine AdvReac Intermediate Migraine Verified 11/11/24 13:16 Exam Constitutional Constitutional: no acute distress *Routine HEENT Exam Head: Present normocephalic and atraumatic Eye: Present PERRL ENT: Present mucous membranes moist *Routine Neck Exam Neck: Present supple *Routine Respiratory Exam Respiratory: Present CTA bilaterally *Routine Cardiovascular Exam Cardiovascular: Present RRR *Routine Abdominal Exam Abdominal: Present soft *Routine Rectal Exam Rectal:: deferred *Routine Genitalia Exam Genitalia:: deferred Routine Back/Spine/Pelvis Exam Back/Spine: Present pain with flexion *Routine Skin Exam Skin: Present intact and warm *Routine Neurological Exam Neurological: Present alert and oriented X3 Routine Psychiatric Exam Psychiatric: Present normal affect and normal thought process Assessment and Plan *Assessment and plan (1) Postlaminectomy syndrome: Status: Chronic Category: Medical Code(s): M96.1 - Postlaminectomy syndrome, not elsewhere classified (2) Failed back syndrome: Status: Chronic Category: Medical Code(s): M96.1 - Postlaminectomy syndrome, not elsewhere classified Plan Patient has been instructed to contact the clinic with any concerns before the next appointment. Dr. Barrow has reviewed this note and agrees with this plan of care. This note was dictated using voice recognition software and make contain errors or omissions. All injections are used with Lidocaine, Bupivacaine and dexamethasone. Occasionally urine drug screen is needed to verify patient's compliance with our office pain contract. This is ordered based off specific treatments related to chronic pain with the potential to abuse certain medications.
[2025-03-17 13:22] VITALS: BP 135/74; PULSE 55; RESP 18; O2SAT 97; BMI 32.5
--- NOTE | 2025-03-17 13:37 | P.PCN_ITS ---
Procedure Date: 03/17/25 Time: 14:09 Anesthesiologist:: Michelle Rodriguez APRN Complications:: None Pre-procedure Diagnosis:: Degenerative disc disease, postlaminectomy syndrome Post-procedure Diagnosis:: Same Indications for Procedure:: Patient is a pleasant 49-year-old male who presents today for intrathecal refill and reprogram. Patient rates his pain today a 4 out of 10. He denies any new trauma or injury. Patient is currently managed with Dilaudid 2 mg/mL with a daily dose of 0.462 mg/day. He denies any side effects. He states this is overall doing well. His Rufino has been reviewed and is appropriate. Physical Exam: General: Alert and oriented x3, no acute distress, pleasant and cooperative Lungs: Respirations even and unlabored, symmetrical chest expansion Eyes: PERRL Musculoskeletal: Flexion and extension of lumbar [spine] somewhat guarded secondary to pain, [antalgic gait noted] Neurological: Speech clear, no gross sensory deficit Procedure Details:: Informed consent was obtained and the risk and benefits of the procedure were explained to the patient. The patient had noninvasive monitoring placed including noninvasive blood pressure cuff and pulse oximeter. Patient's pump was interrogated. The area over the pump was cleansed with chlorhexidine as a cleansing solution. In sterile fashion the pump was accessed with a 22-gauge needle. Approximately 6 mls of the pump solution was removed and discarded emma ropriately. The pump was then refilled with 20 mL's of Dilaudid 2 mg/mL and bupivacaine 5 mg/mL. The needle was withdrawn and a bandage was placed over the puncture site. The infusion rate was reprogrammed and continued. The patient tolerated well with no complication. Plan and Disposition:: Patient tolerated the procedure well with no complications and was discharged neurologically intact. I did diet counselor the patient that we were adding bupivacaine to his pump today as we had spoken about previously. Patient was agreeable to this option. We will continue to monitor and see how he does with this addition. Patient will return to clinic on or before their next intrathecal refill date. We will see the patient back in the clinic at the next intrathecal refill. Patient has been instructed to contact the clinic with any concerns before the next appointment. Dr. Barrow has reviewed this note and agrees with this plan of care. This note was dictated using voice recognition software and make contain errors or omissions. -- It Is medically necessary for this patient to continue to have their intrathecal pump refilled at regular intervals. This patient had an intrathecal pain pump implanted after meeting criteria of chronic intractable pain for greater than 3 months and failing conservative treatments. Patient has committed and been compliant to the treatment plan and all planned follow up care. Since implantation of the intrathecal pain pump, the patient has had decreased pain and been more functional. Oral medications have been reduced including intake of oral opioids. Patient continues to do well with intrathecal therapy with decrease in pain symptoms and increase in functional status. Stopping intrathecal medications can lead to life threatening withdrawal, seizures, cardiac arrest, severe pain, and possible . Pumps that are not refilled at regular intervals can be damages and cause and need for replacement. We continually titrate dose and concentration to optimize pain relief and function. We are limited in concentration for certain drugs to safely deliver medications through the pump and stay within the recommendations from the Polyanalgesic Consensus Committee Guidelines. Depending on dose and concentration these pumps may need to be refilled sooner than 3 months as we titrate. A UDS is needed to verify patient's compliance with our office pain contract. This is ordered based off specific treatments related to chronic pain with the potential to abuse certain medications.
[2025-03-17 14:04] VITALS: BP 135/81; PULSE 66; RESP 18; O2SAT 99
[2025-03-17 14:15] VITALS: BP 117/69; PULSE 77; RESP 18; O2SAT 99
== END 2025-03-17 14:15 | disposition home or self-care (01) ==
PROVIDERS: Visit Provider Nurse Practitioner Family
DX: Z45.1 Encounter for adjustment and management of infusion pump (principal); M96.1 Postlaminectomy syndrome, not elsewhere classified; Z88.5 Allergy status to narcotic agent; Z79.82 Long term (current) use of aspirin; Z79.899 Other long term (current) drug therapy; Z79.890 Hormone replacement therapy; Z79.1 Long term (current) use of non-steroidal anti-inflammatories (NSAID)
CPT/HCPCS: 62370